=== PATIENT | female | born 1990 | race American Indian/Alaskan Native ===

== ENCOUNTER 2018-03-22 13:50 | Emergency (ER) | payer MEDICAID, OTHER ==
[2018-03-22 14:13] VITALS: BP 150/107
[2018-03-22] MEDS ORDERED: ZOFRAN ODT PO ONE (14:23)
[2018-03-22] MEDS ORDERED: NACL 0.9% 1000 ML 1,000 ML IV ONE (14:24)
[2018-03-22] MEDS ORDERED: PEPCID IV ONE (14:25)
[2018-03-22] MEDS ORDERED: ZOFRAN IV ONE (14:25)
--- NOTE | 2018-03-22 14:30 | Emergency Department Report ---
ED Abdominal Pain HPI - General Chief Complaint: Abdominal Pain Stated Complaint: VOMITING/GAS/CHILLS Time Seen by Provider: 03/22/18 14:16 Source: patient Mode of arrival: Ambulatory Limitations: No Limitations - History of Present Illness Initial Comments: Patient is a 27-year-old female who presents to ED complaining of generalized abdominal pain times one day. Patient states she had a palpable vomiting episodes yesterday. Patient states she is also experience left-sided flank pain all day yesterday. Patient noted that for the past 2 weeks she has been on fast with her mormonism which allows her to eat 1 meal a day. She denies vaginal bleeding, vaginal discharge, dysuria, MD Complaint: abdominal pain, flank pain - Related Data Previous Rx's Medication Instructions Recorded Last Taken Type Azithromycin [Zithromax Z-LYNNE] 250 mg PO DAILY #7 tab 01/19/13 Unknown Rx Cephalexin [Keflex] 500 mg PO BID #20 capsule 01/19/13 Unknown Rx oxyCODONE /ACETAMINOPHEN [Percocet 1 tab PO Q6HR PRN #30 tablet 01/23/13 Unknown Rx 5/325 mg] Cephalexin [Keflex] 750 mg PO Q6H #28 capsule 02/11/13 Unknown Rx Hydromorphone HCl [Dilaudid] 4 mg PO Q6HR PRN #30 tablet 02/11/13 Unknown Rx Nitrofurantoin [place]/M-Cryst 100 mg PO QDAY #30 capsule 02/11/13 Unknown Rx [Macrobid] Ondansetron [Zofran] 4 mg PO Q8HR PRN #20 tablet 02/11/13 Unknown Rx Docusate Sodium [Colace] 100 mg PO BID PRN #60 capsule 03/23/13 Unknown Rx Ferrous Sulfate [Feosol 325 MG tab] 325 mg PO BID #60 tablet 03/23/13 Unknown Rx oxyCODONE /ACETAMINOPHEN [Percocet 1 tab PO Q4HR PRN #45 tablet 03/23/13 Unknown Rx 5/325 mg] Ibuprofen [Motrin 800 MG tab] 800 mg PO TID PRN #40 tablet 03/22/18 Unknown Rx Nitrofurantoin Monohyd/M-Cryst 100 mg PO BID #10 capsule 03/22/18 Unknown Rx [Macrobid 100 mg Capsule] Allergies Allergy/AdvReac Type Severity Reaction Status Date / Time Penicillins Allergy Unknown Verified 01/17/13 00:06 ED Review of Systems ROS: Stated complaint: VOMITING/GAS/CHILLS Other details as noted in HPI Comment: All other systems reviewed and negative ED Past Medical Hx - Past Medical History Previous Medical History?: Yes Hx Hypertension: Yes (2004 ) Hx Heart Attack/AMI: No Hx Congestive Heart Failure: No Hx Diabetes: No Hx Deep Vein Thrombosis: No Hx Liver Disease: No Hx Renal Disease: No Hx Sickle Cell Disease: No Hx Seizures: No Hx Asthma: No Hx COPD: No Hx HIV: No - Surgical History Past Surgical History?: Yes Hx Pacemaker: No Hx Internal Defibrillator: No Additional Surgical History: x3. left breast mass drained - Social History Smoking Status: Never Smoker Substance Use Type: None - Medications Home Medications: Home Medications Medication Instructions Recorded Confirmed Last Taken Type Azithromycin [Zithromax Z-LYNNE] 250 mg PO DAILY #7 tab 01/19/13 03/22/13 Unknown Rx Cephalexin [Keflex] 500 mg PO BID #20 capsule 01/19/13 03/22/13 Unknown Rx oxyCODONE /ACETAMINOPHEN [Percocet 1 tab PO Q6HR PRN #30 tablet 01/23/13 03/22/13 Unknown Rx 5/325 mg] Cephalexin [Keflex] 750 mg PO Q6H #28 capsule 02/11/13 03/22/13 Unknown Rx Hydromorphone HCl [Dilaudid] 4 mg PO Q6HR PRN #30 tablet 02/11/13 03/22/13 Unknown Rx Nitrofurantoin [place]/M-Cryst 100 mg PO QDAY #30 capsule 02/11/13 03/22/13 Unknown Rx [Macrobid] Ondansetron [Zofran] 4 mg PO Q8HR PRN #20 tablet 02/11/13 03/22/13 Unknown Rx Docusate Sodium [Colace] 100 mg PO BID PRN #60 capsule 03/23/13 Unknown Rx Ferrous Sulfate [Feosol 325 MG tab] 325 mg PO BID #60 tablet 03/23/13 Unknown Rx oxyCODONE /ACETAMINOPHEN [Percocet 1 tab PO Q4HR PRN #45 tablet 03/23/13 Unknown Rx 5/325 mg] Ibuprofen [Motrin 800 MG tab] 800 mg PO TID PRN #40 tablet 03/22/18 Unknown Rx Nitrofurantoin Monohyd/M-Cryst 100 mg PO BID #10 capsule 03/22/18 Unknown Rx [Macrobid 100 mg Capsule] ED Physical Exam - General Limitations: No Limitations General appearance: alert, in no apparent distress - Head Head exam: Present: atraumatic, normocephalic - Eye Eye exam: Present: normal appearance - ENT ENT exam: Present: mucous membranes moist - Neck Neck exam: Present: normal inspection - Respiratory Respiratory exam: Present: normal lung sounds bilaterally. Absent: respiratory distress - Cardiovascular Cardiovascular Exam: Present: regular rate, normal rhythm. Absent: systolic murmur, diastolic murmur, rubs, gallop - GI/Abdominal GI/Abdominal exam: Present: soft, tenderness, normal bowel sounds. Absent: distended, guarding, rebound, rigid - Extremities Exam Extremities exam: Present: normal inspection - Back Exam Back exam: Present: normal inspection, full ROM, CVA tenderness (L). Absent: tenderness, CVA tenderness (R) - Neurological Exam Neurological exam: Present: alert, oriented X3 - Psychiatric Psychiatric exam: Present: normal affect, normal mood - Skin Skin exam: Present: warm, dry, intact, normal color. Absent: rash ED Course Vital Signs 03/22/18 14:09 Temperature 99.3 F Pulse Rate 79 Respiratory 16 Rate Blood Pressure 150/107 O2 Sat by Pulse 99 Oximetry ED Medical Decision Making - Lab Data Result diagrams: 03/22/18 14:30 03/22/18 14:30 Laboratory Last Values WBC 11.0 K/mm3 (4.5-11.0) 03/22/18 14:30 RBC 4.10 M/mm3 (3.65-5.03) 03/22/18 14:30 Hgb 10.7 gm/dl (10.1-14.3) 03/22/18 14:30 Hct 33.6 % (30.3-42.9) 03/22/18 14:30 MCV 82 fl (79-97) 03/22/18 14:30 MCH 26 pg (28-32) L 03/22/18 14:30 MCHC 32 % (30-34) 03/22/18 14:30 RDW 16.0 % (13.2-15.2) H 03/22/18 14:30 Plt Count 529 K/mm3 (140-440) H 03/22/18 14:30 Sodium 139 mmol/L (137-145) 03/22/18 14:30 Potassium 4.1 mmol/L (3.6-5.0) 03/22/18 14:30 Chloride 99.5 mmol/L (98-107) 03/22/18 14:30 Carbon Dioxide 23 mmol/L (22-30) 03/22/18 14:30 Anion Gap 21 mmol/L 03/22/18 14:30 BUN 7 mg/dL (7-17) 03/22/18 14:30 Creatinine 0.8 mg/dL (0.7-1.2) 03/22/18 14:30 Estimated GFR > 60 ml/min 03/22/18 14:30 BUN/Creatinine Ratio 9 % 03/22/18 14:30 Glucose 99 mg/dL (65-100) 03/22/18 14:30 Calcium 10.0 mg/dL (8.4-10.2) 03/22/18 14:30 Total Bilirubin 0.40 mg/dL (0.1-1.2) 03/22/18 14:30 AST 21 units/L (5-40) 03/22/18 14:30 ALT 21 units/L (7-56) 03/22/18 14:30 Alkaline Phosphatase 59 units/L (35-129) 03/22/18 14:30 Total Protein 8.1 g/dL (6.3-8.2) 03/22/18 14:30 Albumin 4.5 g/dL (3.9-5) 03/22/18 14:30 Albumin/Globulin Ratio 1.3 % 03/22/18 14:30 Amylase 135 units/L (27-131) H 03/22/18 14:30 Lipase 38 units/L (13-60) 03/22/18 14:30 Urine Color Yellow (Yellow) 03/22/18 14:24 Urine Turbidity Cloudy (Clear) 03/22/18 14:24 Urine pH 8.0 (5.0-7.0) H 03/22/18 14:24 Ur Specific [place] 1.024 (1.003-1.030) 03/22/18 14:24 Urine Protein 100 mg/dl mg/dL (Negative) 03/22/18 14:24 Urine Glucose (UA) Neg mg/dL (Negative) 03/22/18 14:24 Urine Ketones 80 mg/dL (Negative) 03/22/18 14:24 Urine Blood Mod (Negative) 03/22/18 14:24 Urine Nitrite Neg (Negative) 03/22/18 14:24 Urine Bilirubin Neg (Negative) 03/22/18 14:24 Urine Urobilinogen < 2.0 mg/dL (<2.0) 03/22/18 14:24 Ur Leukocyte Esterase Lg (Negative) 03/22/18 14:24 Urine WBC (Auto) > 182.0 /HPF (0.0-6.0) H 03/22/18 14:24 Urine RBC (Auto) 183.0 /HPF (0.0-6.0) 03/22/18 14:24 U Epithel Cells (Auto) 27.0 /HPF (0-13.0) H 03/22/18 14:24 Urine Bacteria (Auto) 2+ /HPF (Negative) 03/22/18 14:24 Urine Mucus 3+ /HPF 03/22/18 14:24 Urine HCG, Qual Negative (Negative) 03/22/18 14:24 - Medical Decision Making 27-year-old female presents with acute cystitis/pyelo CBC, CMP, urinalysis and tests ordered. Labs are within normal limits, amylase elevated urinalysis positive for leukocyte esterase, wbc's. Discussed findings with the patient. Patient was seen 1 L normal saline, Rocephin, Zofran in the ED. No active vomiting during ED stay. I discussed the patient important to increase hydration. Patient reports feeling much better after fluids and pain medicated. Vital signs are normal she is in no acute distress. Discussed follow-up with primary care physician. Critical care attestation.: If time is entered above; I have spent that time in minutes in the direct care of this critically ill patient, excluding procedure time. ED Disposition Clinical Impression: Cystitis, Flank pain Disposition: - TO HOME OR SELFCARE Is pt being admited?: No Does the pt Need Aspirin: No Condition: Stable Instructions: Urinary Tract Infection in Women (ED), Acute Pyelonephritis (ED), Abdominal Pain (ED), Flank Pain (ED) Additional Instructions: Make sure to follow up with the primary care physician as discussed. Take all your medications as you've been prescribed. If you have any worsening symptoms or develop new symptoms please return to ED immediately. Prescriptions: Ibuprofen [Motrin 800 MG tab] 800 mg PO TID PRN #40 tablet PRN Reason: Pain Nitrofurantoin Monohyd/M-Cryst [Macrobid 100 mg Capsule] 100 mg PO BID #10 capsule Referrals: MARINE ORONA MD [Referring] - 3-5 Days [facility] [Outside] - 3-5 Days [facility] [Outside] - 3-5 Days Forms: Accompanied Note, Work/School Release Form(ED) Time of Disposition: 15:35
[2018-03-22 14:43] LABS: Hematocrit 33.6 % (30.3-42.9); Hemoglobin 10.7 gm/dl (10.1-14.3); Mean Corpuscular HGB Conc 32 % (30-34); Mean Corpuscular Volume 82 fl (79-97); Platelet Count 529 K/mm3 (140-440)
[2018-03-22 14:46] LABS: Bacteria,Urine 2+ /HPF (Negative); Bilirubin,Urine NEG (Negative); Blood,Urine MOD (Negative); Color,Urine Yellow (Yellow); Mucus,Urine 3+ /HPF; Urobilinogen,Urine < 2.0 mg/dL (<2.0)
[2018-03-22 14:47] LABS: WBC,Urine > 182.0 /HPF (0.0-6.0)
[2018-03-22 14:49] LABS: HCG Qualitative,Urine Negative (Negative)
[2018-03-22 15:03] LABS: Alanine Aminotransferase 21 units/L (7-56); Albumin 4.5 g/dL (3.9-5); BUN/Creatinine Ratio 9; Blood Urea Nitrogen 7 mg/dL (7-17); Hemolysis Index 19
[2018-03-22] MEDS ORDERED: ROCEPHIN IM ONE (15:09)
[2018-03-22] MEDS ORDERED: ALUM-MAG HYDROX-SIMETH 200-200-20MG/5ML PO ONE (16:17)
[2018-03-22] MEDS ORDERED: ROCEPHIN 250 MG in NACL 0.9% 50 ML IV ONE (16:30)
== END 2018-03-22 16:33 | disposition home or self-care (01) ==
LOC: ED 13:50
DX: N30.90 Cystitis, unspecified without hematuria (principal); I10 Essential (primary) hypertension; Z88.0 Allergy status to penicillin
CPT/HCPCS: 36415; 80053; 81001; 81025; 82150; 83690; 85027; 96361; 96365; 96375; 99283; J0696; J2405; J7030

== ENCOUNTER 2018-04-16 09:51 | Emergency (ER) | payer OTHER ==
[2018-04-16 10:34] VITALS: BP 160/99
[2018-04-16] MEDS ORDERED: ZOFRAN ODT PO ONE (11:47)
[2018-04-16 12:26] LABS: Bacteria,Urine 1+ /HPF (Negative); Bilirubin,Urine NEG (Negative); Blood,Urine NEG (Negative); Color,Urine Amber (Yellow); HCG Qualitative,Urine Negative (Negative); Mucus,Urine 2+ /HPF; Urobilinogen,Urine < 2.0 mg/dL (<2.0)
[2018-04-16] MEDS ORDERED: NACL 0.9% 1000 ML 1,000 ML IV ONE ×2 (12:27→13:16)
[2018-04-16] MEDS ORDERED: MORPHINE IV ONE ×2 (12:27→13:53)
[2018-04-16] MEDS ORDERED: REGLAN IV ONE (12:27)
[2018-04-16] MEDS ORDERED: PEPCID IV ONE (12:27)
[2018-04-16] MEDS ORDERED: BENADRYL IV ONE (12:27)
[2018-04-16 12:48] LABS: Hematocrit 31.9 % (30.3-42.9); Hemoglobin 10.5 gm/dl (10.1-14.3); Mean Corpuscular HGB Conc 33 % (30-34); Mean Corpuscular Volume 81 fl (79-97); Platelet Count 443 K/mm3 (140-440); Red Blood Count 3.95 M/mm3 (3.65-5.03); Red Cell Distribution Width 16.9 % (13.2-15.2)
[2018-04-16 13:03] LABS: Alanine Aminotransferase 20 units/L (7-56); Albumin 4.2 g/dL (3.9-5); BUN/Creatinine Ratio 16; Blood Urea Nitrogen 11 mg/dL (7-17); Calcium 9.5 mg/dL (8.4-10.2); Hemolysis Index 44
--- NOTE | 2018-04-16 13:18 | Emergency Department Report ---
ED N/V/D HPI - General Chief complaint: Abdominal Pain Stated complaint: N/V Time Seen by Provider: 04/16/18 12:22 Source: patient Mode of arrival: Ambulatory Limitations: No Limitations - History of Present Illness Initial comments: 28 yo female with a past medical history of 3 visits to the hospital with complaints of nausea, vomiting, diarrhea with by mouth intolerance since last night. She states she has vomited over 10 times since 2 AM. She denies fever, nausea, vomiting, hematochezia, hematemesis, sick contacts, recent travel, or antibiotic use. She states she was here last month with similar symptoms. He was medical record was reviewed. At that time patient was diagnosed with gastritis and UTI no imaging studies were obtained. - Related Data Previous Rx's Medication Instructions Recorded Last Taken Type Azithromycin [Zithromax Z-LYNNE] 250 mg PO DAILY #7 tab 01/19/13 Unknown Rx Cephalexin [Keflex] 500 mg PO BID #20 capsule 01/19/13 Unknown Rx oxyCODONE /ACETAMINOPHEN [Percocet 1 tab PO Q6HR PRN #30 tablet 01/23/13 Unknown Rx 5/325 mg] Cephalexin [Keflex] 750 mg PO Q6H #28 capsule 02/11/13 Unknown Rx Hydromorphone HCl [Dilaudid] 4 mg PO Q6HR PRN #30 tablet 02/11/13 Unknown Rx Nitrofurantoin [place]/M-Cryst 100 mg PO QDAY #30 capsule 02/11/13 Unknown Rx [Macrobid] Ondansetron [Zofran] 4 mg PO Q8HR PRN #20 tablet 02/11/13 Unknown Rx Docusate Sodium [Colace] 100 mg PO BID PRN #60 capsule 03/23/13 Unknown Rx Ferrous Sulfate [Feosol 325 MG tab] 325 mg PO BID #60 tablet 03/23/13 Unknown Rx oxyCODONE /ACETAMINOPHEN [Percocet 1 tab PO Q4HR PRN #45 tablet 03/23/13 Unknown Rx 5/325 mg] Ibuprofen [Motrin 800 MG tab] 800 mg PO TID PRN #40 tablet 03/22/18 Unknown Rx Nitrofurantoin Monohyd/M-Cryst 100 mg PO BID #10 capsule 03/22/18 Unknown Rx [Macrobid 100 mg Capsule] HYDROcodone/APAP 5-325 [[place] 1 each PO Q6HR PRN #20 tablet 04/16/18 Unknown Rx 5/325] Omeprazole Magnesium [PriLOSEC Otc] 20 mg PO QDAY #30 tablet. 04/16/18 Unknown Rx Ondansetron [Zofran Odt] 4 mg PO Q8HR PRN #20 tab.rapdis 04/16/18 Unknown Rx Promethazine [Phenergan TAB] 25 mg PO Q6HR PRN #20 tab 04/16/18 Unknown Rx Allergies Allergy/AdvReac Type Severity Reaction Status Date / Time Penicillins Allergy Unknown Verified 01/17/13 00:06 ED Review of Systems ROS: Stated complaint: N/V Other details as noted in HPI Comment: All other systems reviewed and negative ED Past Medical Hx - Past Medical History Hx Hypertension: Yes (2004 ) Hx Heart Attack/AMI: No Hx Congestive Heart Failure: No Hx Diabetes: No Hx Deep Vein Thrombosis: No Hx Liver Disease: No Hx Renal Disease: No Hx Sickle Cell Disease: No Hx Seizures: No Hx Asthma: No Hx COPD: No Hx HIV: No - Surgical History Hx Pacemaker: No Hx Internal Defibrillator: No Additional Surgical History: x3. left breast mass drained - Social History Smoking Status: Current Some Day Smoker Substance Use Type: Marijuana - Medications Home Medications: Home Medications Medication Instructions Recorded Confirmed Last Taken Type Azithromycin [Zithromax Z-LYNNE] 250 mg PO DAILY #7 tab 01/19/13 03/22/13 Unknown Rx Cephalexin [Keflex] 500 mg PO BID #20 capsule 01/19/13 03/22/13 Unknown Rx oxyCODONE /ACETAMINOPHEN [Percocet 1 tab PO Q6HR PRN #30 tablet 01/23/13 03/22/13 Unknown Rx 5/325 mg] Cephalexin [Keflex] 750 mg PO Q6H #28 capsule 02/11/13 03/22/13 Unknown Rx Hydromorphone HCl [Dilaudid] 4 mg PO Q6HR PRN #30 tablet 02/11/13 03/22/13 Unknown Rx Nitrofurantoin [place]/M-Cryst 100 mg PO QDAY #30 capsule 02/11/13 03/22/13 Unknown Rx [Macrobid] Ondansetron [Zofran] 4 mg PO Q8HR PRN #20 tablet 02/11/13 03/22/13 Unknown Rx Docusate Sodium [Colace] 100 mg PO BID PRN #60 capsule 03/23/13 Unknown Rx Ferrous Sulfate [Feosol 325 MG tab] 325 mg PO BID #60 tablet 03/23/13 Unknown Rx oxyCODONE /ACETAMINOPHEN [Percocet 1 tab PO Q4HR PRN #45 tablet 03/23/13 Unknown Rx 5/325 mg] Ibuprofen [Motrin 800 MG tab] 800 mg PO TID PRN #40 tablet 03/22/18 Unknown Rx Nitrofurantoin Monohyd/M-Cryst 100 mg PO BID #10 capsule 03/22/18 Unknown Rx [Macrobid 100 mg Capsule] HYDROcodone/APAP 5-325 [[place] 1 each PO Q6HR PRN #20 tablet 04/16/18 Unknown Rx 5/325] Omeprazole Magnesium [PriLOSEC Otc] 20 mg PO QDAY #30 tablet. 04/16/18 Unknown Rx Ondansetron [Zofran Odt] 4 mg PO Q8HR PRN #20 tab.rapdis 04/16/18 Unknown Rx Promethazine [Phenergan TAB] 25 mg PO Q6HR PRN #20 tab 04/16/18 Unknown Rx ED Physical Exam - General Limitations: No Limitations - Other Other exam information: General: Distress secondary to pain Head exam: Atraumatic, normocephalic Eyes exam: Normal appearance, nonicteric sclera ENT: Moist mucous membrane, Neck exam: Normal inspection, full range of motion, no meningismus nontender Respiratory exam: Clear to auscultation bilateral, no wheezes, rales, crackles Cardiovascular: Normal rate and rhythm, normal heart sounds Abdomen: Soft, nondistended, generalized tenderness greatest in the epigastric area, with normal bowel sounds, no rebound, or guarding Extremity: Full range of motion normal inspection no deformity Back: Normal Inspection, full range of motion, no tenderness Neurologic: Alert, oriented x3, cranial nerves intact, no motor or sensory deficit Psychiatric: normal affect, normal mood Skin: Warm, dry, intact ED Course Vital Signs 04/16/18 10:29 Temperature 98.4 F Pulse Rate 79 Respiratory 18 Rate Blood Pressure 160/99 Blood Pressure 160/99 [Right] O2 Sat by Pulse 100 Oximetry ED Medical Decision Making - Lab Data Result diagrams: 04/16/18 12:31 02/16/19 12:31 Lab Results 04/16/18 04/16/18 04/16/18 Range/Units 11:53 12:31 12:31 WBC 9.5 (4.5-11.0) K/mm3 RBC 3.95 (3.65-5.03) M/mm3 Hgb 10.5 (10.1-14.3) gm/dl Hct 31.9 (30.3-42.9) % MCV 81 (79-97) fl MCH 27 L (28-32) pg MCHC 33 (30-34) % RDW 16.9 H (13.2-15.2) % Plt Count 443 H (140-440) K/mm3 Add Manual Diff Complete Total Counted 100 Seg Neutrophils % Stencil Machine Operator Seg Neuts % (Manual) 93.0 H (40.0-70.0) % Band Neutrophils % 0 % Lymphocytes % (Manual) 4.0 L (13.4-35.0) % Reactive Lymphs % (Man) 0 % Monocytes % (Manual) 2.0 (0.0-7.3) % Eosinophils % (Manual) 0 (0.0-4.3) % Basophils % (Manual) 1.0 (0.0-1.8) % Metamyelocytes % 0 % Myelocytes % 0 % Promyelocytes % 0 % Blast Cells % 0 % Nucleated RBC % Not Reportable Seg Neutrophils # Man 8.8 H (1.8-7.7) K/mm3 Band Neutrophils # 0.0 K/mm3 Lymphocytes # (Manual) 0.4 L (1.2-5.4) K/mm3 Abs React Lymphs (Man) 0.0 K/mm3 Monocytes # (Manual) 0.2 (0.0-0.8) K/mm3 Eosinophils # (Manual) 0.0 (0.0-0.4) K/mm3 Basophils # (Manual) 0.1 (0.0-0.1) K/mm3 Metamyelocytes # 0.0 K/mm3 Myelocytes # 0.0 K/mm3 Promyelocytes # 0.0 K/mm3 Blast Cells # 0.0 K/mm3 WBC Morphology Not Reportable Hypersegmented Neuts Not Reportable Hyposegmented Neuts Not Reportable Hypogranular Neuts Not Reportable Smudge Cells Not Reportable Toxic Granulation Not Reportable Toxic Vacuolation Not Reportable Dohle Bodies Not Reportable Pelger-Huet Anomaly Not Reportable Bhavana Rods Not Reportable Platelet Estimate Consistent w auto Clumped Platelets Not Reportable Plt Clumps, EDTA Not Reportable Large Platelets Not Reportable Giant Platelets Not Reportable Platelet Satelliting Not Reportable Plt Morphology Comment Not Reportable RBC Morphology Not Reportable Dimorphic RBCs Not Reportable Polychromasia Not Reportable Hypochromasia Not Reportable Poikilocytosis Not Reportable Anisocytosis 1+ Microcytosis Not Reportable Macrocytosis Not Reportable Spherocytes Not Reportable Pappenheimer Bodies Not Reportable Sickle Cells Not Reportable Target Cells Not Reportable Tear Drop Cells Not Reportable Ovalocytes Not Reportable Helmet Cells Not Reportable [place] [employer]b Bodies Not Reportable [place] Rings Not Reportable [place] Cells Not Reportable Bite Cells Not Reportable Crenated Cell Not Reportable Elliptocytes Not Reportable Acanthocytes (Spur) Not Reportable Rouleaux Not Reportable Hemoglobin C Crystals Not Reportable Schistocytes Not Reportable Malaria parasites Not Reportable Srinivas Bodies Not Reportable Hem Pathologist Commnt No Sodium 137 (137-145) mmol/L Potassium 4.0 (3.6-5.0) mmol/L Chloride 102.5 (98-107) mmol/L Carbon Dioxide 18 L (22-30) mmol/L Anion Gap 21 mmol/L BUN 11 (7-17) mg/dL Creatinine 0.7 (0.7-1.2) mg/dL Estimated GFR > 60 ml/min BUN/Creatinine Ratio 16 % Glucose 130 H (65-100) mg/dL Calcium 9.5 (8.4-10.2) mg/dL Total Bilirubin 0.30 (0.1-1.2) mg/dL AST 25 (5-40) units/L ALT 20 (7-56) units/L Alkaline Phosphatase 59 (35-129) units/L Total Protein 7.5 (6.3-8.2) g/dL Albumin 4.2 (3.9-5) g/dL Albumin/Globulin Ratio 1.3 % Lipase 31 (13-60) units/L Urine Color [place] (Yellow) Urine Turbidity Clear (Clear) Urine pH 8.0 H (5.0-7.0) Ur Specific [place] 1.025 (1.003-1.030) Urine Protein 100 mg/dl (Negative) mg/dL Urine Glucose (UA) Neg (Negative) mg/dL Urine Ketones Tr (Negative) mg/dL Urine Blood Neg (Negative) Urine Nitrite Neg (Negative) Urine Bilirubin Neg (Negative) Urine Urobilinogen < 2.0 (<2.0) mg/dL Ur Leukocyte Esterase Neg (Negative) Urine WBC (Auto) 1.0 (0.0-6.0) /HPF Urine RBC (Auto) 3.0 (0.0-6.0) /HPF U Epithel Cells (Auto) 2.0 (0-13.0) /HPF Urine Bacteria (Auto) 1+ (Negative) /HPF Urine Mucus 2+ /HPF Urine HCG, Qual Negative (Negative) - Radiology Data Radiology results: report reviewed CT abdomen and pelvis IV contrast: Small cystic mass in the right adnexa is likely a dominant follicle. Fluid and endometrial and endocervical canal no significant finding abdomen pelvis - Medical Decision Making Patient feeling better with ED treatment and tolerating by mouth. CT abdomen and pelvis without acute abnormality. Will be discharged with symptomatic treatment and follow-up - Differential Diagnosis gastritis, gastroenteritis, UTI, appendicitis, diverticulitis, cholecystiti Critical Care Time: No Critical care attestation.: If time is entered above; I have spent that time in minutes in the direct care of this critically ill patient, excluding procedure time. ED Disposition Clinical Impression: Gastroenteritis Disposition: DC-01 TO HOME OR SELFCARE Is pt being admited?: No Does the pt Need Aspirin: No Condition: Stable Instructions: Gastroenteritis (ED) Additional Instructions: Take the medication as prescribed. Follow up with your doctor or the clinic/doctor provided. Return if symptoms worsen as indicated by your discharge instructions Prescriptions: HYDROcodone/APAP 5-325 [[place] 5/325] 1 each PO Q6HR PRN #20 tablet PRN Reason: Pain Omeprazole Magnesium [PriLOSEC Otc] 20 mg PO QDAY #30 tablet. Ondansetron [Zofran Odt] 4 mg PO Q8HR PRN #20 tab.rapdis PRN Reason: Nausea And Vomiting Promethazine [Phenergan TAB] 25 mg PO Q6HR PRN #20 tab PRN Reason: Nausea Referrals: DOC TOVAR MD [Staff Physician] - 3-5 Days (GI specialist) CARBUCCIA,PEACE [Primary Care Provider] - 3-5 Days (Primary care doctor) [facility] [Provider Group] - 3-5 Days (Primary care clinic) Time of Disposition: 16:08
[2018-04-16] MEDS ORDERED: ZOFRAN IV ONE (13:54)
[2018-04-16 14:42] LABS: Anisocytosis 1+; Eosinophils % (Manual) 0 % (0.0-4.3); Total Cells Counted 100
[2018-04-16 14:43] LABS: Platelet Estimate Consistent w Auto
--- NOTE | 2018-04-16 14:55 | Cat Scan Report ---
FINAL REPORT EXAM: CT ABDOMEN PELVIS W CON HISTORY: abd pain, n,v,d TECHNIQUE: CT abdomen and pelvis performed. Images extend from diaphragm to pubic symphysis. 100 c c Omnipaque 300 IV was administered. No oral contrast was administered. Axial images and coronal and sagittal reformatted images were obtained. PRIORS: None. FINDINGS: The visualized liver, spleen, pancreas, adrenal glands and kidneys demonstrate no significant abnorma lities. There is no abdominal aortic aneurysm. There is no evidence of intestinal obstruction. The appendix is normal. There are no abnormal fluid collections seen. There is no free intraperitoneal air. There is a 2 cm cystic mass in the right adnexa. There is minimal free fluid in the cul-de-sac. There is fluid in the endometrial and endocervical canal. IMPRESSION: Small cystic mass in the right adnexa is likely a dominant follicle. There is fluid in the endometrial and endocervical canal. No significant finding otherwise seen in abdomen or pelvis.
== END 2018-04-16 16:25 | disposition home or self-care (01) ==
LOC: ED 09:51
DX: K52.9 Noninfective gastroenteritis and colitis, unspecified (principal); I10 Essential (primary) hypertension; F17.200 Nicotine dependence, unspecified, uncomplicated; F12.10 Cannabis abuse, uncomplicated; Z79.899 Other long term (current) drug therapy; Z88.0 Allergy status to penicillin
CPT/HCPCS: 36415; 74177; 80053; 81001; 81025; 83690; 85007; 85025; 96361; 96374; 96375; 96376; 99284; J1200; J2270; J2405; J2765; J7030; Q9967; Q0162

== ENCOUNTER 2018-04-18 04:42 | Inpatient (IN) | payer OTHER ==
[2018-04-18 05:41] LABS: Basophils # (Auto) 0.1 K/mm3 (0.0-0.1); Basophils % (Auto) 0.9 % (0.0-1.8); Eosinophils # (Auto) 0.1 K/mm3 (0.0-0.4); Eosinophils % (Auto) 0.9 % (0.0-4.3); Hematocrit 34.8 % (30.3-42.9); Hemoglobin 11.1 gm/dl (10.1-14.3); Lymphocytes # (Auto) 2.5 K/mm3 (1.2-5.4); Lymphocytes % (Auto) 19.1 % (13.4-35.0); Mean Corpuscular HGB Conc 32 % (30-34); Mean Corpuscular Volume 82 fl (79-97); Monocytes # (Auto) 0.8 K/mm3 (0.0-0.8); Monocytes % (Auto) 6.3 % (0.0-7.3); Platelet Count 553 K/mm3 (140-440); Red Blood Count 4.22 M/mm3 (3.65-5.03); Red Cell Distribution Width 17.4 % (13.2-15.2)
[2018-04-18 05:58] LABS: BUN/Creatinine Ratio 11; Blood Urea Nitrogen 10 mg/dL (7-17); Calcium 9.3 mg/dL (8.4-10.2); Hemolysis Index 4
[2018-04-18] MEDS ORDERED: ZOFRAN IV ONE (06:25)
[2018-04-18] MEDS ORDERED: ZOFRAN ONE (06:26)
[2018-04-18] MEDS ORDERED: TORADOL IV ONE (07:00)
[2018-04-18] MEDS ORDERED: PEPCID IV ONE (07:00)
--- NOTE | 2018-04-18 07:07 | Emergency Department Report ---
HPI - General Chief Complaint: Abdominal Pain Time Seen by Provider: 04/18/18 06:53 - HPI HPI: Room 26 The patient is a 28-year-old female presented with a chief complaint of abdominal pain. Patient states she's had diffuse abdominal pain for the past 3 days. Patient describes pain as pressure and tightening in nature. Patient admits to nausea vomiting and diarrhea. Denies history of fever. Patient denies dysuria or vaginal discharge. Location: Abdomen Duration: [See above] Quality: Pressure/tightening Severity: 12/08 Modifying factors: [see above] Context: [see above] Mode of transportation: The patient drove herself to the emergency department and there are no visitors present ED Past Medical Hx - Past Medical History Hx Hypertension: Yes (2004 ) - Surgical History Additional Surgical History: x3. left breast mass drained - Family History Family history: no significant - Social History Smoking Status: Never Smoker Substance Use Type: Marijuana - Medications Home Medications: Home Medications Medication Instructions Recorded Confirmed Last Taken Type Azithromycin [Zithromax Z-LYNNE] 250 mg PO DAILY #7 tab 01/19/13 03/22/13 Unknown Rx Cephalexin [Keflex] 500 mg PO BID #20 capsule 01/19/13 03/22/13 Unknown Rx oxyCODONE /ACETAMINOPHEN [Percocet 1 tab PO Q6HR PRN #30 tablet 01/23/13 03/22/13 Unknown Rx 5/325 mg] Cephalexin [Keflex] 750 mg PO Q6H #28 capsule 02/11/13 03/22/13 Unknown Rx Hydromorphone HCl [Dilaudid] 4 mg PO Q6HR PRN #30 tablet 02/11/13 03/22/13 Unknown Rx Nitrofurantoin [place]/M-Cryst 100 mg PO QDAY #30 capsule 02/11/13 03/22/13 Unknown Rx [Macrobid] Ondansetron [Zofran] 4 mg PO Q8HR PRN #20 tablet 02/11/13 03/22/13 Unknown Rx Docusate Sodium [Colace] 100 mg PO BID PRN #60 capsule 03/23/13 Unknown Rx Ferrous Sulfate [Feosol 325 MG tab] 325 mg PO BID #60 tablet 03/23/13 Unknown Rx oxyCODONE /ACETAMINOPHEN [Percocet 1 tab PO Q4HR PRN #45 tablet 03/23/13 Unknown Rx 5/325 mg] Ibuprofen [Motrin 800 MG tab] 800 mg PO TID PRN #40 tablet 03/22/18 Unknown Rx Nitrofurantoin Monohyd/M-Cryst 100 mg PO BID #10 capsule 03/22/18 Unknown Rx [Macrobid 100 mg Capsule] HYDROcodone/APAP 5-325 [[place] 1 each PO Q6HR PRN #20 tablet 04/16/18 Unknown Rx 5/325] Omeprazole Magnesium [PriLOSEC Otc] 20 mg PO QDAY #30 tablet. 04/16/18 Unknown Rx Ondansetron [Zofran Odt] 4 mg PO Q8HR PRN #20 tab.rapdis 04/16/18 Unknown Rx Promethazine [Phenergan TAB] 25 mg PO Q6HR PRN #20 tab 04/16/18 Unknown Rx ED Review of Systems ROS: Stated complaint: N/V Other details as noted in HPI Constitutional: denies: fever Eyes: denies: eye pain ENT: denies: throat pain Respiratory: no symptoms reported Cardiovascular: denies: chest pain Endocrine: no symptoms reported Gastrointestinal: abdominal pain, nausea, vomiting, diarrhea Genitourinary: denies: dysuria, discharge Musculoskeletal: denies: back pain Neurological: denies: headache Physical Exam - Physical Exam Vital Signs: Vital Signs 04/18/18 04/18/18 04/18/18 04:53 05:00 05:36 Temperature 98.2 F 98.2 F Pulse Rate 90 105 H 71 Respiratory 18 20 14 Rate Blood Pressure 165/105 165/105 O2 Sat by Pulse 100 100 Oximetry 04/18/18 04/18/18 04/18/18 05:45 06:00 06:15 Temperature Pulse Rate 73 96 H 64 Respiratory 11 L 15 15 Rate Blood Pressure O2 Sat by Pulse 98 100 100 Oximetry 04/18/18 04/18/18 04/18/18 06:31 06:45 06:57 Temperature Pulse Rate 67 80 Respiratory 13 10 L 16 Rate Blood Pressure O2 Sat by Pulse 99 100 100 Oximetry Physical Exam: GENERAL: The patient is well-developed well-nourished female lying on stretcher appearing to be in moderate discomfort. [] HEENT: Normocephalic. Atraumatic. Extraocular motions are intact. Patient has moist mucous membranes. NECK: Supple. Trachea midline CHEST/LUNGS: Clear to auscultation. There is no respiratory distress noted. HEART/CARDIOVASCULAR: Regular. There is no tachycardia. There is no gallop rub or murmur. ABDOMEN: Abdomen is soft, with diffuse tenderness to palpation. There is no rebound or guarding. Patient has normal bowel sounds. There is no abdominal d istention. SKIN: There is no rash. There is no edema. There is no diaphoresis. NEURO: The patient is awake, alert, and oriented. The patient is cooperative. The patient has normal speech MUSCULOSKELETAL: There is no evidence of acute injury. ED Course Vital Signs 04/18/18 04/18/18 04/18/18 04:53 05:00 05:36 Temperature 98.2 F 98.2 F Pulse Rate 90 105 H 71 Respiratory 18 20 14 Rate Blood Pressure 165/105 165/105 O2 Sat by Pulse 100 100 Oximetry 04/18/18 04/18/18 04/18/18 05:45 06:00 06:15 Temperature Pulse Rate 73 96 H 64 Respiratory 11 L 15 15 Rate Blood Pressure O2 Sat by Pulse 98 100 100 Oximetry 04/18/18 04/18/18 04/18/18 06:31 06:45 06:57 Temperature Pulse Rate 67 80 Respiratory 13 10 L 16 Rate Blood Pressure O2 Sat by Pulse 99 100 100 Oximetry ED Medical Decision Making - Lab Data Result diagrams: 04/18/18 05:21 04/18/18 05:21 Laboratory Tests 04/18/18 04/18/18 04/18/18 05:21 05:21 05:21 WBC 13.1 H RBC 4.22 Hgb 11.1 Hct 34.8 MCV 82 MCH 26 L MCHC 32 RDW 17.4 H Plt Count 553 H Lymph % (Auto) 19.1 [place] % (Auto) 6.3 Eos % (Auto) 0.9 Baso % (Auto) 0.9 Lymph # 2.5 [place] # 0.8 Eos # 0.1 Baso # 0.1 Seg Neutrophils % 72.8 H Seg Neutrophils # 9.5 H Sodium 139 Potassium 3.8 Chloride 104.6 Carbon Dioxide 19 L Anion Gap 19 BUN 10 Creatinine 0.9 Estimated GFR > 60 BUN/Creatinine Ratio 11 Glucose 94 Calcium 9.3 Total Bilirubin Direct Bilirubin AST ALT Alkaline Phosphatase Total Protein Albumin Albumin/Globulin Ratio HCG, Qual Negative Urine Color Urine Turbidity Urine pH Ur Specific [place] Urine Protein Urine Glucose (UA) Urine Ketones Urine Blood Urine Nitrite Urine Bilirubin Urine Urobilinogen Ur Leukocyte Esterase Urine WBC (Auto) Urine RBC (Auto) U Epithel Cells (Auto) Urine Bacteria (Auto) Urine Mucus 04/18/18 04/18/18 05:21 07:42 WBC RBC Hgb Hct MCV MCH MCHC RDW Plt Count Lymph % (Auto) [place] % (Auto) Eos % (Auto) Baso % (Auto) Lymph # [place] # Eos # Baso # Seg Neutrophils % Seg Neutrophils # Sodium Potassium Chloride Carbon Dioxide Anion Gap BUN Creatinine Estimated GFR BUN/Creatinine Ratio Glucose Calcium Total Bilirubin 0.30 Direct Bilirubin < 0.2 AST 19 ALT 15 Alkaline Phosphatase 57 Total Protein 7.6 Albumin 4.2 Albumin/Globulin Ratio 1.2 HCG, Qual Urine Color Yellow Urine Turbidity Slightly-cloudy Urine pH 7.0 Ur Specific [place] 1.014 Urine Protein <15 mg/dl Urine Glucose (UA) Neg Urine Ketones 20 Urine Blood Neg Urine Nitrite Neg Urine Bilirubin Neg Urine Urobilinogen < 2.0 Ur Leukocyte Esterase Tr Urine WBC (Auto) 3.0 Urine RBC (Auto) 2.0 U Epithel Cells (Auto) 9.0 Urine Bacteria (Auto) 1+ Urine Mucus Few - Radiology Data Radiology results: report reviewed (pelvic ultrasound, CT abdomen and pelvis), image reviewed (pelvic ultrasound, CT abdomen and pelvis) [facility] [address] [place] [address] Ultrasound Report Signed Patient: ANNALISA STATON MR#: [id number] : 1990 Acct:[id number] Age/Sex: 28 / F ADM Date: 04/18/18 Loc: ED Attending Dr: Ordering Physician: HANNAH GARCIA MD Date of Service: 04/18/18 Procedure(s): US pelvis duplex doppler comp Accession Number(s): [id number] cc: HANNAH GARCIA MD FINAL REPORT EXAM: US PELVIS DUPLEX DOPPLER COMP HISTORY: abd pain, right adnexal mass seen on previous CT COMPARISONS: 04/16/2018 FINDINGS: Transvaginal and transabdominal grayscale, color and spectral Doppler ultrasound of the pelvis Anteverted uterus measures approximately 10.5 x 5.1 x 5.3 cm. Myometrium is within normal limits. Endometrium is homogeneous and measures approximately 2 millimeters in thickness. A small volume of free fluid is present in the pelvis. Several adjacent functional right ovarian cysts measure up to 1.3 cm. The ovaries are otherwise unremarkable and measure 3 x 2.1 x 3 cm on the right and 2 x 2.2 x 2 cm on the left. Normal spectral Doppler waveforms in both ovaries. IMPRESSION: Functional right ovarian cyst measures less than 3 cm in diameter. A small volume of free fluid is likely associated and physiologic in nature. No follow-up is required based on consensus criteria. No evidence of ovarian torsion. Transcribed By: MB Dictated By: ELIZABETH LANGLEY MD Electronically Authenticated By: ELIZABETH LANGLEY MD Signed Date/Time: 04/18/18808 DD/ 6 TD/TT: 04/18/18806 [facility] [address] [place] [address] Cat Scan Report Signed Patient: ANNALISA STATON MR#: [id number] : 1990 Acct:[id number] Age/Sex: 28 / F ADM Date: 04/18/18 Loc: ED Attending Dr: Ordering Physician: HANNAH GARCIA MD Date of Service: 04/18/18 Procedure(s): CT abdomen pelvis w con Accession Number(s): [id number] cc: HANNAH GARCIA MD CT ABDOMEN PELVIS WITH CONTRAST: HISTORY: Continued diffuse abdominal pain, leukocytosis. COMPARISON: 04/16/18. TECHNIQUE: Helical CT in 1.25mm intervals following IV contrast. Sagittal and coronal reconstructions. FINDINGS: Lung bases: Normal. Liver: Normal. Biliary system: Normal. Pancreas: Normal. Spleen: Normal. Kidneys/ureters/bladder: Normal. Adrenal glands: Normal. Aorta: Normal. Intestines: Normal. Appendix: Normal. Pelvic viscera: 2 cm cystic lesion in the right ovary has resolved. The uterus and adnexa are unremarkable on today's exam. Ascites: Small pelvic ascites has developed probably related to ovarian cyst. Adenopathy: None. Musculoskeletal: The bony structures are intact. There is a 2.2 cm focus of ill-defined enhancement in the lower right lower abdominal muscles which is best demonstrated on image 153, series 2. The etiology of this is unclear. Recent surgical procedure? Otherwise a focus of infection could be considered. Please correlate with the patient's clinical presentation and history. IMPRESSION: Right ovarian cyst has resolved. Small pelvic ascites has developed. Ill-defined area of enhancement in the lower abdominal muscles to the left of midline as outlined above. Transcribed By: TTR Dictated By: TEODORA SALOMON JR, MD Electronically Authenticated By: TEODORA SALOMON JR, MD Signed Date/Time: 04/18/181228 DD/ 25 TD/TT: 04/18/181228 - Differential Diagnosis gastroenteritis, tubo-ovarian abscess, bacterial vaginosis, UTI Critical care attestation.: If time is entered above; I have spent that time in minutes in the direct care of this critically ill patient, excluding procedure time. ED Disposition Clinical Impression: Acute abdominal pain, Leukocytosis, Intractable nausea and vomiting Disposition: 09 OP ADMIT IP TO THIS HOSP Is pt being admited?: Yes Does the pt Need Aspirin: No Condition: Fair Instructions: Abdominal Pain (ED) Referrals: PRIMARY CARE, [Referring] - 3-5 Days Time of Disposition: 12:43 (hospitalist paged (Dr Lopez))
[2018-04-18] MEDS ORDERED: NACL 0.9% 1000 ML 1,000 ML IV ONE (07:08)
[2018-04-18 07:20] LABS: Alanine Aminotransferase 15 units/L (7-56); Albumin 4.2 g/dL (3.9-5)
[2018-04-18 07:25] LABS: Bilirubin,Direct < 0.2 mg/dL (0-0.2)
[2018-04-18 07:56] LABS: Bacteria,Urine 1+ /HPF (Negative); Bilirubin,Urine NEG (Negative); Blood,Urine NEG (Negative); Color,Urine Yellow (Yellow); Mucus,Urine FEW /HPF; Protein,Urine <15 mg/dL mg/dL (Negative); Urobilinogen,Urine < 2.0 mg/dL (<2.0)
--- NOTE | 2018-04-18 08:06 | Ultrasound Report ---
FINAL REPORT EXAM: US TRANSVAGINAL HISTORY: abd pain, right adnexal mass seen on previous CT COMPARISONS: 04/16/2018 FINDINGS: Transvaginal and transabdominal grayscale, color and spectral Doppler ultrasound of the pelvis Anteverted uterus measures approximately 10.5 x 5.1 x 5.3 cm. Myometrium is within normal limits. End ometrium is homogeneous and measures approximately 2 millimeters in thickness. A small volume of free fluid is present in the pelvis. A functional right ovarian cyst measures up to 1.3 cm. The ovaries a re otherwise unremarkable and measure 3 x 2.1 x 3 cm on the right and 2 x 2.2 x 2 cm on the left. IMPRESSION: Functional right ovarian cyst measures less than 3 cm in diameter. A small volume of free fluid is li trey associated and physiologic in nature. No follow-up is required based on consensus criteria. No e vidence of ovarian torsion.
--- NOTE | 2018-04-18 08:09 | Ultrasound Report ---
FINAL REPORT EXAM: US PELVIS DUPLEX DOPPLER COMP HISTORY: abd pain, right adnexal mass seen on previous CT COMPARISONS: 04/16/2018 FINDINGS: Transvaginal and transabdominal grayscale, color and spectral Doppler ultrasound of the pelvis Anteverted uterus measures approximately 10.5 x 5.1 x 5.3 cm. Myometrium is within normal limits. End ometrium is homogeneous and measures approximately 2 millimeters in thickness. A small volume of free fluid is present in the pelvis. Several adjacent functional right ovarian cysts measure up to 1.3 cm . The ovaries are otherwise unremarkable and measure 3 x 2.1 x 3 cm on the right and 2 x 2.2 x 2 cm o n the left. Normal spectral Doppler waveforms in both ovaries. IMPRESSION: Functional right ovarian cyst measures less than 3 cm in diameter. A small volume of free fluid is li trey associated and physiologic in nature. No follow-up is required based on consensus criteria. No e vidence of ovarian torsion.
[2018-04-18] MEDS ORDERED: TYLENOL PO ONE (08:57)
[2018-04-18] MEDS ORDERED: REGLAN ONE (10:13)
[2018-04-18] MEDS ORDERED: DILAUDID ONE (10:14)
[2018-04-18] MEDS ORDERED: REGLAN IV ONE (10:17)
[2018-04-18] MEDS ORDERED: DILAUDID IV ONE (10:17)
--- NOTE | 2018-04-18 12:33 | Cat Scan Report ---
CT ABDOMEN PELVIS WITH CONTRAST: HISTORY: Continued diffuse abdominal pain, leukocytosis. COMPARISON: 04/16/18. TECHNIQUE: Helical CT in 1.25mm intervals following IV contrast. Sagittal and coronal reconstructions. FINDINGS: Lung bases: Normal. Liver: Normal. Biliary system: Normal. Pancreas: Normal. Spleen: Normal. Kidneys/ureters/bladder: Normal. Adrenal glands: Normal. Aorta: Normal. Intestines: Normal. Appendix: Normal. Pelvic viscera: 2 cm cystic lesion in the right ovary has resolved. The uterus and adnexa are unremarkable on today's exam. Ascites: Small pelvic ascites has developed probably related to ovarian cyst. Adenopathy: None. Musculoskeletal: The bony structures are intact. There is a 2.2 cm focus of ill-defined enhancement in the lower right lower abdominal muscles which is best demonstrated on image 153, series 2. The etiology of this is unclear. Recent surgical procedure? Otherwise a focus of infection could be considered. Please correlate with the patient's clinical presentation and history. IMPRESSION: Right ovarian cyst has resolved. Small pelvic ascites has developed. Ill-defined area of enhancement in the lower abdominal muscles to the left of midline as outlined above.
[2018-04-18] MEDS: DILAUDID IV PRN ×2 (17:46→22:14)
--- NOTE | 2018-04-19 00:29 | History and Physical Report ---
History of Present Illness Date of examination: 04/18/18 Date of admission: 04/18/18 12:51 Chief complaint: Acute abdominal pain for 3 days History of present illness: 28-year-old female presented with chief complaint of abdominal pain. Patient states she's had diffuse abdominal pain for the past 3 days. Patient describes pain as pressure and tightening in nature. Patient also admits to nausea vomiting and diarrhea. Denies history of fever. Patient denies dysuria or vaginal discharge.No fever or chills Location: Abdomen Duration: [3 days] Quality: Pressure/tightening Severity: 12/08 Past Medical History Hx Hypertension: Yes (2004 ) Surgical History Additional Surgical History: x3. left breast mass drained Family History Family history: no significant Social History Smoking Status: Never Smoker Substance Use Type: Marijuana Review of Systems ROS: Stated complaint: N/V Other details as noted in HPI Constitutional: denies: fever Eyes: denies: eye pain ENT: denies: throat pain Respiratory: no symptoms reported Cardiovascular: denies: chest pain Endocrine: no symptoms reported Gastrointestinal: abdominal pain, nausea, vomiting, diarrhea Genitourinary: denies: dysuria, discharge Musculoskeletal: denies: back pain Neurological: denies: headache Medications and Allergies Allergies Allergy/AdvReac Type Severity Reaction Status Date / Time Penicillins Allergy Unknown Verified 01/17/13 00:06 Home Medications Medication Instructions Recorded Confirmed Last Taken Type No Known Home Medications [No 04/18/18 04/18/18 Unknown History Reported Home Medications] Active Meds: Active Medications Hydromorphone HCl (Dilaudid) 0.5 mg IV Q3H PRN PRN Reason: Pain , Severe (7-10) Last Admin: 04/18/18 22:14 Dose: 0.5 mg Documented by: Exam - Constitutional Vitals: Temp Pulse Resp BP Pulse Ox 99.3 F 70 15 127/84 99 04/18/18 16:25 04/18/18 16:25 04/18/18 16:25 04/18/18 16:25 04/18/18 16:25 General appearance: Present: no acute distress, well-nourished - EENT Eyes: Present: PERRL ENT: hearing intact, clear oral mucosa - Neck Neck: Present: supple, normal ROM - Respiratory Respiratory effort: normal Respiratory: bilateral: CTA - Cardiovascular Heart rate: 78 Rhythm: regular Heart Sounds: Present: S1 & S2. Absent: rub, click - Extremities Extremities: no ischemia, pulses intact, pulses symmetrical, No edema Peripheral Pulses: within normal limits - Abdominal General gastrointestinal: Present: tender, non-distended, normal bowel sounds Localized gastrointestinal: tender: RLQ Female genitourinary: Present: normal - Integumentary Integumentary: Present: clear, warm, dry - Musculoskeletal Musculoskeletal: gait normal, strength equal bilaterally - Psychiatric Psychiatric: appropriate mood/affect, intact judgment & insight - Neurologic Neurologic: CNII-XII intact, moves all extremities - Allied Health Allied health notes reviewed: nursing, case management Results - Labs CBC & Chem 7: 04/18/18 05:21 04/18/18 05:21 Labs: Laboratory Last Values WBC 13.1 K/mm3 (4.5-11.0) H 04/18/18 05:21 RBC 4.22 M/mm3 (3.65-5.03) 04/18/18 05:21 Hgb 11.1 gm/dl (10.1-14.3) 04/18/18 05:21 Hct 34.8 % (30.3-42.9) 04/18/18 05:21 MCV 82 fl (79-97) 04/18/18 05:21 MCH 26 pg (28-32) L 04/18/18 05:21 MCHC 32 % (30-34) 04/18/18 05:21 RDW 17.4 % (13.2-15.2) H 04/18/18 05:21 Plt Count 553 K/mm3 (140-440) H 04/18/18 05:21 Lymph % (Auto) 19.1 % (13.4-35.0) 04/18/18 05:21 [place] % (Auto) 6.3 % (0.0-7.3) 04/18/18 05:21 Eos % (Auto) 0.9 % (0.0-4.3) 04/18/18 05:21 Baso % (Auto) 0.9 % (0.0-1.8) 04/18/18 05:21 Lymph # 2.5 K/mm3 (1.2-5.4) 04/18/18 05:21 [place] # 0.8 K/mm3 (0.0-0.8) 04/18/18 05:21 Eos # 0.1 K/mm3 (0.0-0.4) 04/18/18 05:21 Baso # 0.1 K/mm3 (0.0-0.1) 04/18/18 05:21 Seg Neutrophils % 72.8 % (40.0-70.0) H 04/18/18 05:21 Seg Neutrophils # 9.5 K/mm3 (1.8-7.7) H 04/18/18 05:21 Sodium 139 mmol/L (137-145) 04/18/18 05:21 Potassium 3.8 mmol/L (3.6-5.0) 04/18/18 05:21 Chloride 104.6 mmol/L (98-107) 04/18/18 05:21 Carbon Dioxide 19 mmol/L (22-30) L 04/18/18 05:21 Anion Gap 19 mmol/L 04/18/18 05:21 BUN 10 mg/dL (7-17) 04/18/18 05:21 Creatinine 0.9 mg/dL (0.7-1.2) 04/18/18 05:21 Estimated GFR > 60 ml/min 04/18/18 05:21 BUN/Creatinine Ratio 11 % 04/18/18 05:21 Glucose 94 mg/dL (65-100) 04/18/18 05:21 Calcium 9.3 mg/dL (8.4-10.2) 04/18/18 05:21 Total Bilirubin 0.30 mg/dL (0.1-1.2) 04/18/18 05:21 Direct Bilirubin < 0.2 mg/dL (0-0.2) 04/18/18 05:21 AST 19 units/L (5-40) 04/18/18 05:21 ALT 15 units/L (7-56) 04/18/18 05:21 Alkaline Phosphatase 57 units/L (35-129) 04/18/18 05:21 Total Protein 7.6 g/dL (6.3-8.2) 04/18/18 05:21 Albumin 4.2 g/dL (3.9-5) 04/18/18 05:21 Albumin/Globulin Ratio 1.2 % 04/18/18 05:21 HCG, Qual Negative (Negative) 04/18/18 05:21 Urine Color Yellow (Yellow) 04/18/18 07:42 Urine Turbidity Slightly-cloudy (Clear) 04/18/18 07:42 Urine pH 7.0 (5.0-7.0) 04/18/18 07:42 Ur Specific [place] 1.014 (1.003-1.030) 04/18/18 07:42 Urine Protein <15 mg/dl mg/dL (Negative) 04/18/18 07:42 Urine Glucose (UA) Neg mg/dL (Negative) 04/18/18 07:42 Urine Ketones 20 mg/dL (Negative) 04/18/18 07:42 Urine Blood Neg (Negative) 04/18/18 07:42 Urine Nitrite Neg (Negative) 04/18/18 07:42 Urine Bilirubin Neg (Negative) 04/18/18 07:42 Urine Urobilinogen < 2.0 mg/dL (<2.0) 04/18/18 07:42 Ur Leukocyte Esterase Tr (Negative) 04/18/18 07:42 Urine WBC (Auto) 3.0 /HPF (0.0-6.0) 04/18/18 07:42 Urine RBC (Auto) 2.0 /HPF (0.0-6.0) 04/18/18 07:42 U Epithel Cells (Auto) 9.0 /HPF (0-13.0) 04/18/18 07:42 Urine Bacteria (Auto) 1+ /HPF (Negative) 04/18/18 07:42 Urine Mucus Few /HPF 04/18/18 07:42 - Imaging and Cardiology EKG: report reviewed Imaging and Cardiology: . US PELVIS DUPLEX DOPPLER COMP HISTORY: abd pain, right adnexal mass seen on previous CT COMPARISONS: 04/16/2018 FINDINGS: Transvaginal and transabdominal grayscale, color and spectral Doppler ultrasound of the pelvis Anteverted uterus measures approximately 10.5 x 5.1 x 5.3 cm. Myometrium is within normal limits. Endometrium is homogeneous and measures approximately 2 millimeters in thickness. A small volume of free fluid is present in the pelvis. Several adjacent functional right ovarian cysts measure up to 1.3 cm. The ovaries are otherwise unremarkable and measure 3 x 2.1 x 3 cm on the right and 2 x 2.2 x 2 cm on the left. Normal spectral Doppler waveforms in both ovaries. IMPRESSION: Functional right ovarian cyst measures less than 3 cm in diameter. A small volume of free fluid is likely associated and physiologic in nature. No follow-up is required based on consensus criteria. No evidence of ovarian torsion. US TRANSVAGINAL HISTORY: abd pain, right adnexal mass seen on previous CT COMPARISONS: 04/16/2018 FINDINGS: Transvaginal and transabdominal grayscale, color and spectral Doppler ultrasound of the pelvis Anteverted uterus measures approximately 10.5 x 5.1 x 5.3 cm. Myometrium is within normal limits. Endometrium is homogeneous and measures approximately 2 millimeters in thickness. A small volume of free fluid is present in the pelvis. A functional right ovarian cyst measures up to 1.3 cm. The ovaries are otherwise unremarkable and measure 3 x 2.1 x 3 cm on the right and 2 x 2.2 x 2 cm on the left. IMPRESSION: Functional right ovarian cyst measures less than 3 cm in diameter. A small volume of free fluid is likely associated and physiologic in nature. No follow-up is required based on consensus criteria. No evidence of ovarian torsion. CT Abdomen CT ABDOMEN PELVIS WITH CONTRAST: HISTORY: Continued diffuse abdominal pain, leukocytosis. COMPARISON: 04/16/18. TECHNIQUE: Helical CT in 1.25mm intervals following IV contrast. Sagittal and coronal reconstructions. FINDINGS: Lung bases: Normal. Liver: Normal. Biliary system: Normal. Pancreas: Normal. Spleen: Normal. Kidneys/ureters/bladder: Normal. Adrenal glands: Normal. Aorta: Normal. Intestines: Normal. Appendix: Normal. Pelvic viscera: 2 cm cystic lesion in the right ovary has resolved. The uterus and adnexa are unremarkable on today's exam. Ascites: Small pelvic ascites has developed probably related to ovarian cyst. Adenopathy: None. Musculoskeletal: The bony structures are intact. There is a 2.2 cm focus of ill-defined enhancement in the lower right lower abdominal muscles which is best demonstrated on image 153, series 2. The etiology of this is unclear. Recent surgical procedure? Otherwise a focus of infection could be considered. Please correlate with the patient's clinical presentation and history. IMPRESSION: Right ovarian cyst has resolved. Small pelvic ascites has developed. Ill-defined area of enhancement in the lower abdominal muscles to the left of midline as outlined above. Assessment and Plan Advance Directives: Yes (Full code) VTE prophylaxis?: Chemical Plan of care discussed with patient/family: Yes - Patient Problems (1) Acute abdominal pain Current Visit: Yes Status: Acute Plan to address problem: Possibly sec to Rt Ovarian cyst which may have resolved bcoz Cyst shows resolution on ABd CT Observation for 23 hours IV Fluids and IV abx (2) Intractable nausea and vomiting Current Visit: Yes Status: Acute Plan to address problem: IV Fluids and symptomatic treatment (3) Ovarian cyst Current Visit: Yes Status: Acute Qualifiers: Laterality: right Qualified Code(s): N83.201 - Unspecified ovarian cyst, right side Plan to address problem: machinery mover consult requested (4) Dehydration Current Visit: Yes Status: Acute Plan to address problem: IV Fluids for now (5) DVT prophylaxis Current Visit: Yes Status: Acute Plan to address problem: on Lovenox and GI prophylaxis
[2018-04-19] MEDS ORDERED: PERCOCET 5/325 PO PRN (00:31)
[2018-04-19] MEDS ORDERED: SODIUM CHLORIDE FLUSH SYRINGE 10 ML IV PRN (00:31)
[2018-04-19] MEDS ORDERED: TYLENOL PO PRN (00:31)
[2018-04-19] MEDS: PEPCID IV SCH ×3 (02:05→21:15)
[2018-04-19] MEDS: NACL 0.9% 1000 ML 1,000 ML IV SCH (03:06)
[2018-04-19] MEDS: DILAUDID IV PRN ×5 (03:09→21:15)
[2018-04-19 05:44] LABS: Basophils # (Auto) 0.1 K/mm3 (0.0-0.1); Basophils % (Auto) 0.7 % (0.0-1.8); Eosinophils % (Auto) 0.6 % (0.0-4.3); Hematocrit 28.9 % (30.3-42.9); Hemoglobin 9.4 gm/dl (10.1-14.3); Lymphocytes # (Auto) 2.3 K/mm3 (1.2-5.4); Lymphocytes % (Auto) 28.9 % (13.4-35.0); Mean Corpuscular HGB Conc 32 % (30-34); Mean Corpuscular Volume 82 fl (79-97); Monocytes # (Auto) 0.8 K/mm3 (0.0-0.8); Monocytes % (Auto) 10.2 % (0.0-7.3); Platelet Count 403 K/mm3 (140-440); Red Blood Count 3.51 M/mm3 (3.65-5.03); Red Cell Distribution Width 17.5 % (13.2-15.2)
[2018-04-19 06:12] LABS: Alanine Aminotransferase 12 units/L (7-56); Albumin 3.4 g/dL (3.9-5); BUN/Creatinine Ratio 15; Blood Urea Nitrogen 9 mg/dL (7-17); Calcium 8.5 mg/dL (8.4-10.2); Hemolysis Index 3
[2018-04-19] MEDS ORDERED: K-DUR PO ONE (09:00)
[2018-04-19] MEDS: SODIUM CHLORIDE FLUSH SYRINGE 10 ML IV SCH ×2 (09:15→21:15)
[2018-04-19] MEDS: ZOFRAN IV PRN ×2 (09:15→16:49)
[2018-04-19] MEDS ORDERED: AFLURIA QUAD 2018-2019 SYRINGE IM ONE (12:00)
--- NOTE | 2018-04-19 12:13 | Progress Note ---
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 (4) Dehydration Current Visit: Yes Status: Acute Plan to address problem: IV Fluids for now (5) DVT prophylaxis Current Visit: Yes Status: Acute Plan to address problem: on Lovenox and GI prophylaxis Subjective Date of service: 04/19/18 Objective - Constitutional Vitals: Vital Signs - 12hr 04/19/18 04/19/18 06:05 11:52 Temperature 98.5 F 98.4 F Pulse Rate 94 H 61 Respiratory 18 19 Rate Blood Pressure 134/89 134/91 O2 Sat by Pulse 99 99 Oximetry - Labs CBC & Chem 7: 04/19/18 04:22 04/19/18 04:22 Labs: Abnormal lab results 04/19/18 04/19/18 Range/Units 04:22 04:22 RBC 3.51 L (3.65-5.03) M/mm3 Hgb 9.4 L (10.1-14.3) gm/dl Hct 28.9 L (30.3-42.9) % MCH 27 L (28-32) pg RDW 17.5 H (13.2-15.2) % [place] % (Auto) 10.2 H (0.0-7.3) % Potassium 3.2 L (3.6-5.0) mmol/L Chloride 107.5 H (98-107) mmol/L Creatinine 0.6 L (0.7-1.2) mg/dL Total Protein 6.2 L (6.3-8.2) g/dL Albumin 3.4 L (3.9-5) g/dL
--- NOTE | 2018-04-19 13:29 | History and Physical Report ---
History of Present Illness Date of examination: 04/19/18 Date of admission: 04/18/18 12:51 Chief complaint: abdominal pain History of present illness: 28-year-old female presented with chief complaint of abdominal pain. Patient states she's had diffuse abdominal pain for the past 3 days and admitted to having pain for years.. She reports pain as stretching not sharp . Patient also admits to nausea vomiting and diarrhea. Denies history of fever. Patient denies dysuria or vaginal discharge.No fever or chills. She is a patient of Dr. Laurent Past History Past Medical History: hypertension Past Surgical History: breast surgery, section (x3) Family/Genetic History: none Social history: single. denies: smoking, alcohol abuse, prescription drug abuse - Obstetrical History : 3 Medications and Allergies Allergies Allergy/AdvReac Type Severity Reaction Status Date / Time Penicillins Allergy Unknown Verified 01/17/13 00:06 Home Medications Medication Instructions Recorded Confirmed Last Taken Type No Known Home Medications [No 04/18/18 04/18/18 Unknown History Reported Home Medications] Active Meds: Active Medications Acetaminophen (Tylenol) 650 mg PO Q4H PRN PRN Reason: Pain MILD(1-3)/Fever >100.5/BROOKS Famotidine (Pepcid) 20 mg IV BID [facility] Last Admin: 04/19/18 09:15 Dose: 20 mg Documented by: Hydromorphone HCl (Dilaudid) 0.5 mg IV Q3H PRN PRN Reason: Pain , Severe (7-10) Last Admin: 04/19/18 12:27 Dose: 0.5 mg Documented by: Sodium Chloride (Nacl 0.9% 1000 Ml) 1,000 mls @ 75 mls/hr IV DIRECT [facility] Last Admin: 04/19/18 03:06 Dose: 75 mls/hr Documented by: Ondansetron HCl (Zofran) 4 mg IV Q8H PRN PRN Reason: Nausea And Vomiting Last Admin: 04/19/18 09:15 Dose: 4 mg Documented by: Oxycodone/Acetaminophen (Percocet 5/325) 1 tab PO Q6H PRN PRN Reason: Pain, Moderate (4-6) Sodium Chloride (Sodium Chloride Flush Syringe 10 Ml) 10 ml IV BID [facility] Last Admin: 02/19/19 09:15 Dose: 10 ml Documented by: Sodium Chloride (Sodium Chloride Flush Syringe 10 Ml) 10 ml IV PRN PRN PRN Reason: LINE FLUSH Review of Systems All systems: negative - Vital Signs Vital signs: Vital Signs Temp Pulse Resp BP Pulse Ox 98.2 F 90 18 165/105 100 04/18/18 04:53 04/18/18 04:53 04/18/18 04:53 04/18/18 04:53 04/18/18 04:53 Temp Pulse Resp BP Pulse Ox 98.4 F 61 19 134/91 99 04/19/18 11:52 04/19/18 11:52 04/19/18 11:52 04/19/18 11:52 04/19/18 11:52 - Physical Exam Breasts: Positive: normal Cardiovascular: Regular rate, Normal S1 Lungs: Positive: Clear to auscultation, Normal air movement Abdomen: Positive: normal appearance, soft, tenderness, normal bowel sounds. Negative: distention, guarding Genitourinary (Female): Positive: normal external genitalia, normal perenium Vulva: both: normal Uterus: Positive: normal size. Negative: tender Extremities: Positive: normal Deep Tendon Reflex Grade: Normal +2 Results Result Diagrams: 04/19/18 04:22 04/19/18 04:22 Abnormal lab results 04/19/18 04/19/18 Range/Units 04:22 04:22 RBC 3.51 L (3.65-5.03) M/mm3 Hgb 9.4 L (10.1-14.3) gm/dl Hct 28.9 L (30.3-42.9) % MCH 27 L (28-32) pg RDW 17.5 H (13.2-15.2) % [place] % (Auto) 10.2 H (0.0-7.3) % Potassium 3.2 L (3.6-5.0) mmol/L Chloride 107.5 H (98-107) mmol/L Creatinine 0.6 L (0.7-1.2) mg/dL Total Protein 6.2 L (6.3-8.2) g/dL Albumin 3.4 L (3.9-5) g/dL All other labs normal. Ultrasound: report reviewed CT scan - abdomen: report reviewed Assessment and Plan A/P HD ovarian cyst ( simple) resolved cyst with physiological fluid recommended treating her UTI with possibly rocphin f/u in our clinic in 1 weeks and US in 4-6 weeks for resolution thanks for consult
--- NOTE | 2018-04-19 14:45 | Discharge Summary ---
Providers - Providers Date of Admission: 04/18/18 12:51 Date of discharge: 04/19/18 Attending physician: KADE CASTILLO 04/19/18 10:43 Consult to Physician [CONS] Routine Comment: Consulting Provider: SWATI MONDRAGON Physician Instructions: Reason For Exam: ovarian cyst Primary care physician: RAMBO DONALD Hospitalization Reason for admission: abdominal pain Condition: Fair Pertinent studies: US PELVIS DUPLEX DOPPLER COMP HISTORY: abd pain, right adnexal mass seen on previous CT COMPARISONS: 04/16/2018 Functional right ovarian cyst measures less than 3 cm in diameter. A small volume of free fluid is likely associated and physiologic in nature. No follow- up is required based on consensus criteria. No evidence of ovarian torsion. CT ABDOMEN PELVIS WITH CONTRAST: HISTORY: Right ovarian cyst has resolved. Small pelvic ascites has developed. Ill-defined area of enhancement in the lower abdominal muscles to the left of midline as outlined above. Hospital course: 28 y/o female presented with abdominal pain, CT abdomen in the ER showed resolving right ovarian cyst. she was admitted for further evaluation and management. 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, outpt followup / Dehydration Resolved with IV Fluids /likely UTI, mild, only 4 WBC in urine no LE, treated with abx - no evidence of sepsis /leukocytosis, likely reactive from cyst rupture /Hypokalemia, repleted / DVT prophylaxis on Lovenox Disposition: - TO HOME OR SELFCARE Time spent for discharge: 34 minutes Core Measure Documentation - Palliative Care Palliative Care/ Comfort Measures: Not Applicable - Core Measures Any of the following diagnoses?: none Exam - Constitutional Vitals: Temp Pulse Resp BP Pulse Ox 98.4 F 61 19 134/91 99 04/19/18 11:52 04/19/18 11:52 04/19/18 11:52 04/19/18 11:52 04/19/18 11:52 General appearance: Present: no acute distress, well-nourished - EENT Eyes: Present: PERRL ENT: hearing intact, clear oral mucosa - Neck Neck: Present: supple, normal ROM - Respiratory Respiratory effort: normal Respiratory: bilateral: CTA - Cardiovascular Heart Sounds: Present: S1 & S2. Absent: rub, click - Extremities Extremities: pulses symmetrical, No edema Peripheral Pulses: within normal limits - Abdominal General gastrointestinal: Present: soft, non-tender, non-distended, normal bowel sounds - Integumentary Integumentary: Present: clear, warm, dry - Musculoskeletal Musculoskeletal: gait normal, strength equal bilaterally - Psychiatric Psychiatric: appropriate mood/affect, intact judgment & insight - Neurologic Neurologic: CNII-XII intact, moves all extremities Plan Activity: advance as tolerated Weight Bearing Status: Non-Weight Bearing (for 6 weeks) Diet: regular Additional Instructions: f/u with obg/hydro generation manager in 4-6 weeks Follow up with: PRIMARY CARE, [Referring] - 3-5 Days Prescriptions: levoFLOXacin [Levaquin TAB] 500 mg PO Q24HR #5 tablet Metoclopramide HCl [Reglan TAB] 5 mg PO TIDAC PRN #14 tablet PRN Reason: Nausea oxyCODONE /ACETAMINOPHEN [Percocet 5/325 mg] 1 tab PO Q6H PRN #7 tablet PRN Reason: Pain, Moderate (4-6)
[2018-04-19] MEDS: LEVAQUIN PO SCH (16:51)
[2018-04-20] MEDS: ZOFRAN IV PRN ×2 (01:03→10:20)
[2018-04-20] MEDS: DILAUDID IV PRN ×3 (01:03→10:21)
[2018-04-20] MEDS: NACL 0.9% 1000 ML 1,000 ML IV SCH (05:20)
[2018-04-20] MEDS: PEPCID IV SCH (10:20)
[2018-04-20] MEDS: LEVAQUIN PO SCH (10:20)
--- NOTE | 2018-04-20 11:44 | Event Note ---
Date: 04/20/18 Patient stated that she could not arrange a ride and she wants to leave in the morning, she is getting discharged today. No new event change.
[2018-04-20 12:27] VITALS: BP 128/77
[2018-04-20] MEDS ORDERED: PEPCID PO SCH (22:00)
== END 2018-04-20 14:00 | disposition home or self-care (01) | DRG 760 ==
LOC: ED 04:42 → 3A 12:51
PROVIDERS: ADMIT Internal Medicine; ATTEND Internal Medicine
PROC: 3E0234Z Introduction of Serum, Toxoid and Vaccine into Muscle, Percutaneous Approach (ICD-10-PCS; principal; 2018-04-19)
DX: N83.201 Unspecified ovarian cyst, right side (principal); N39.0 Urinary tract infection, site not specified; R11.2 Nausea with vomiting, unspecified; E86.0 Dehydration; E87.6 Hypokalemia; Z23 Encounter for immunization
CPT/HCPCS: 36415; 74177; 76830; 80048; 80053; 80076; 81001; 81025; 83690; 84703; 85007; 85025; 87116; 87210; 87591; 90686; 93975; 96361; 96374; 96375; 96376; 99406; G0378; J1170; J1200; J1885; J2270; J2405; J2765; J7030; Q0162; Q9967

== ENCOUNTER 2019-02-01 17:11 | Emergency (ER) | payer OTHER ==
--- NOTE | 2019-02-01 18:06 | Emergency Department Report ---
Blank Doc - Documentation Documentation: 28-year-old female that presents with abdominal pain with n/v. This initial assessment/diagnostic orders/clinical plan/treatment(s) is/are subject to change based on patient's health status, clinical progression and re- assessment by fellow clinical providers in the ED. Further treatment and workup at subsequent clinical providers discretion. Patient/guardians urged not to elope from the ED as their condition may be serious if not clinically assessed and managed. Initial orders include: 1- Patient sent to [facility] for further evaluation and treatment 2- labs 3- UA
[2019-02-01 18:52] LABS: Bilirubin,Urine NEG (Negative); Blood,Urine SM (Negative); Color,Urine Amber (Yellow); Mucus,Urine 3+ /HPF; Urobilinogen,Urine < 2.0 mg/dL (<2.0)
[2019-02-01 19:14] LABS: Hemoglobin 11.4 gm/dl (10.1-14.3); Red Blood Count 4.23 M/mm3 (3.65-5.03)
[2019-02-01 19:15] LABS: Hematocrit 34.9 % (30.3-42.9); Mean Corpuscular HGB Conc 33 % (30-34); Mean Corpuscular Volume 83 fl (79-97); Platelet Count 324 K/mm3 (140-440); Red Cell Distribution Width 14.8 % (13.2-15.2)
[2019-02-01 19:21] LABS: Alanine Aminotransferase 31 units/L (7-56); Albumin 4.8 g/dL (3.9-5); BUN/Creatinine Ratio 13; Blood Urea Nitrogen 12 mg/dL (7-17); Calcium 9.9 mg/dL (8.4-10.2); Hemolysis Index 3
[2019-02-01 20:02] LABS: Basophils % (Manual) 0 % (0.0-1.8); Eosinophils % (Manual) 0 % (0.0-4.3); RBC Morphology Normal; Total Cells Counted 100
[2019-02-01] MEDS ORDERED: ONDANSETRON 4 MG/2 ML INJ IV ONE (20:14)
[2019-02-01] MEDS ORDERED: SODIUM CHLORIDE 0.9% 1000 ML 1,000 ML IV ONE (20:14)
[2019-02-01] MEDS ORDERED: MORPHINE 4 MG/1 ML INJ IV ONE (20:14)
[2019-02-01] MEDS ORDERED: FAMOTIDINE 20 MG/2 ML INJ IV ONE (20:14)
--- NOTE | 2019-02-01 22:05 | Cat Scan Report ---
CT ABDOMEN AND PELVIS WITH CONTRAST INDICATION / CLINICAL INFORMATION: abdominal pain. TECHNIQUE: Axial CT images were obtained through the abdomen and pelvis after IV contrast. All CT scans at this location are performed using CT dose reduction for ALARA by means of automated exposure control. COMPARISON: None available. FINDINGS: LOWER CHEST: No significant abnormality. LIVER: No significant abnormality. GALLBLADDER: No significant abnormality. BILE DUCTS: No significant abnormality. PANCREAS: No significant abnormality. SPLEEN: No significant abnormality. ADRENALS: No significant abnormality. RIGHT KIDNEY and URETER: No significant abnormality. LEFT KIDNEY and URETER: No significant abnormality. STOMACH and SMALL BOWEL: No significant abnormality. COLON: No significant abnormality. APPENDIX: No significant abnormality. PERITONEUM: No free fluid. No free air. No fluid collection. LYMPH NODES: No significant adenopathy. AORTA and ARTERIES: No significant abnormality. IVC and VEINS: No significant abnormality. URINARY BLADDER: No significant abnormality. REPRODUCTIVE ORGANS: No significant abnormality. Several fluid-filled tubular structures are present surrounding the posterior aspect of the uterus, this raises a question of fluid within the fallopian tubes, pelvic inflammatory disease should be considered ADDITIONAL FINDINGS: None. SKELETAL SYSTEM: No significant abnormality. IMPRESSION: 1. Possible pelvic inflammatory disease as described ultrasound examination may be of benefit for fur ther evaluation Signer Name: Diego Espinoza MD Signed: 02/01/2019 10:01 PM Workstation Name: [id number]
[2019-02-02] MEDS ORDERED: KETOROLAC 30 MG/1 ML INJ IV ONE (00:59)
[2019-02-02] MEDS ORDERED: ONDANSETRON 4 MG/2 ML INJ IV ONE (00:59)
[2019-02-02] MEDS ORDERED: ONDANSETRON 4 MG/2 ML INJ ONE (01:01)
[2019-02-02] MEDS ORDERED: KETOROLAC 30 MG/1 ML INJ ONE (01:01)
--- NOTE | 2019-02-02 03:19 | Emergency Department Report ---
ED Abdominal Pain HPI - General Chief Complaint: Nausea/Vomiting/Diarrhea Stated Complaint: FLU LIKE SYMPTOMS Time Seen by Provider: 02/01/19 18:06 Source: patient Mode of arrival: Ambulatory Limitations: No Limitations - History of Present Illness Initial Comments: Patient is a 28-year-old -[place] female with a history of hypertension who presents to the ED with complaint of acute onset persistent diffuse lower abdominal pain with nausea and vomiting and diarrhea for the last 24 hours. Patient also complains of chills. Patient also admits that she is still on her menstrual cycle at this time. Patient states the patient has worsened in the last 12 hours. Patient denies dizziness, fever, dysuria, urinary frequency and urgency, vaginal discharge, low back pain, chest pain, shortness of breath or change in vision or syncope. MD Complaint: abdominal pain, other (nausea and vomiting, diarrhea) -: Sudden, hour(s) (24) Location: suprapubic Radiation: none Migration to: no migration Severity: severe Severity scale (0 -10): 7 Quality: cramping, aching, sharp Improves With: nothing Worsens With: nothing Associated Symptoms: denies other symptoms, nausea, vomiting, diarrhea, anorexia. denies: chills, hematemesis, hematochezia, melena, hematuria, syncope, other - Related Data LMP Date: 01/29/19 LMP (females 10-50): this week Previous Rx's Medication Instructions Recorded Last Taken Type Metoclopramide HCl [Reglan TAB] 5 mg PO TIDAC PRN #14 tablet 04/19/18 Unknown Rx levoFLOXacin [Levaquin TAB] 500 mg PO Q24HR #5 tablet 04/19/18 Unknown Rx oxyCODONE /ACETAMINOPHEN [Percocet 1 tab PO Q6H PRN #7 tablet 04/19/18 Unknown Rx 5/325 mg] Azithromycin [Zithromax Z-LYNNE] 250 mg PO DAILY #6 tablet 07/15/18 Unknown Rx HYDROcodone/ACETAMINOPHEN 15 ml PO Q6H PRN #150 solution 07/15/18 Unknown Rx [Hydrocodon-Acetamin 7.5-325/15] prednisoLONE [Prednisolone] 45 mg PO DAILY 5 Days solution 07/15/18 Unknown Rx Ciprofloxacin HCl [Ciprofloxacin 500 mg PO Q12HR #20 tab 02/02/19 Unknown Rx TAB] Ibuprofen [Motrin] 800 mg PO Q8HR PRN #24 tablet 02/02/19 Unknown Rx Ondansetron [Zofran Odt] 4 mg PO Q6HR PRN #20 tab.rapdis 02/02/19 Unknown Rx metroNIDAZOLE [Flagyl] 500 mg PO Q12HR #14 tab 02/02/19 Unknown Rx traMADoL [Ultram] 50 mg PO Q6HR PRN #12 tablet 02/02/19 Unknown Rx Allergies Allergy/AdvReac Type Severity Reaction Status Date / Time Penicillins Allergy Unknown Verified 01/17/13 00:06 ED Review of Systems ROS: Stated complaint: FLU LIKE SYMPTOMS Other details as noted in HPI Constitutional: denies: chills, fever Eyes: denies: eye pain, eye discharge, vision change ENT: denies: ear pain, throat pain Respiratory: denies: cough, shortness of breath, wheezing Cardiovascular: denies: chest pain, palpitations Endocrine: no symptoms reported Gastrointestinal: abdominal pain, nausea, vomiting, diarrhea Genitourinary: denies: urgency, dysuria, discharge Musculoskeletal: denies: back pain, joint swelling, arthralgia Skin: denies: rash, lesions Neurological: denies: headache, weakness, paresthesias Psychiatric: denies: anxiety, depression Hematological/Lymphatic: denies: easy bleeding, easy bruising ED Past Medical Hx - Past Medical History Previous Medical History?: Yes Hx Hypertension: Yes Hx Heart Attack/AMI: No Hx Congestive Heart Failure: No Hx Diabetes: No Hx Deep Vein Thrombosis: No Hx Liver Disease: No Hx Renal Disease: No Hx Sickle Cell Disease: No Hx Seizures: No Hx Asthma: No Hx COPD: No Hx HIV: No Additional medical history: C-sections x 3 - Surgical History Past Surgical History?: Yes Hx Pacemaker: No Hx Internal Defibrillator: No Additional Surgical History: x3. left breast mass drained - Social History Smoking Status: Never Smoker - Medications Home Medications: Home Medications Medication Instructions Recorded Confirmed Last Taken Type Metoclopramide HCl [Reglan TAB] 5 mg PO TIDAC PRN #14 tablet 04/19/18 Unknown Rx levoFLOXacin [Levaquin TAB] 500 mg PO Q24HR #5 tablet 04/19/18 Unknown Rx oxyCODONE /ACETAMINOPHEN [Percocet 1 tab PO Q6H PRN #7 tablet 04/19/18 Unknown Rx 5/325 mg] Azithromycin [Zithromax Z-LYNNE] 250 mg PO DAILY #6 tablet 07/15/18 Unknown Rx HYDROcodone/ACETAMINOPHEN 15 ml PO Q6H PRN #150 solution 07/15/18 Unknown Rx [Hydrocodon-Acetamin 7.5-325/] prednisoLONE [Prednisolone] 45 mg PO DAILY 5 Days solution 07/15/18 Unknown Rx Ciprofloxacin HCl [Ciprofloxacin 500 mg PO Q12HR #20 tab 02/02/19 Unknown Rx TAB] Ibuprofen [Motrin] 800 mg PO Q8HR PRN #24 tablet 02/02/19 Unknown Rx Ondansetron [Zofran Odt] 4 mg PO Q6HR PRN #20 tab.rapdis 02/02/19 Unknown Rx metroNIDAZOLE [Flagyl] 500 mg PO Q12HR #14 tab 02/02/19 Unknown Rx traMADoL [Ultram] 50 mg PO Q6HR PRN #12 tablet 02/02/19 Unknown Rx ED Physical Exam - General Limitations: No Limitations General appearance: alert, in no apparent distress - Head Head exam: Present: atraumatic, normocephalic - Eye Eye exam: Present: normal appearance, PERRL, EOMI Pupils: Present: normal accommodation - ENT ENT exam: Present: normal exam, normal orophraynx, mucous membranes moist, TM's normal bilaterally, normal external ear exam - Neck Neck exam: Present: normal inspection, full ROM - Respiratory Respiratory exam: Present: normal lung sounds bilaterally. Absent: respiratory distress, wheezes, stridor, chest wall tenderness, prolonged expiratory - Cardiovascular Cardiovascular Exam: Present: regular rate, normal rhythm, normal heart sounds. Absent: systolic murmur, diastolic murmur, rubs, gallop - GI/Abdominal GI/Abdominal exam: Present: soft, tenderness (palpable suprapubic and periumbilical tenderness with no guarding or rebound), normal bowel sounds. Absent: guarding, organomegaly - External exam: Present: normal external exam. Absent: erythema, lacerations Speculum exam: Present: vaginal discharge, cervical discharge, vaginal bleeding (mild trace of blood in the vaginal vault). Absent: normal speculum exam Bi-manual exam: Present: normal bi-manual exam, other (female RN associate professor of art present, Ms. Nichols). Absent: cervical motion tendernes, adnexal tenderness, uterine tenderness - Extremities Exam Extremities exam: Present: normal inspection, full ROM, normal capillary refill - Back Exam Back exam: Present: normal inspection, full ROM. Absent: tenderness, CVA tenderness (R), muscle spasm, paraspinal tenderness, vertebral tenderness - Neurological Exam Neurological exam: Present: alert, oriented X3, CN II-XII intact, normal gait, reflexes normal - Psychiatric Psychiatric exam: Present: normal affect, normal mood - Skin Skin exam: Present: warm, dry, intact, normal color. Absent: rash ED Course Vital Signs 02/01/19 02/01/19 18:05 20:39 Temperature 99.4 F Pulse Rate 82 Respiratory 18 18 Rate Blood Pressure 140/98 O2 Sat by Pulse 100 Oximetry ED Medical Decision Making - Lab Data Result diagrams: 02/01/19 18:38 02/01/19 18:38 - Radiology Data Radiology results: report reviewed, image [place] [address] Cat Scan Report Signed Patient: ANNALISA STATON MR#: [id number] : 1990 Acct:[id number] Age/Sex: 28 / F ADM Date: 02/01/19 Loc: ED Attending Dr: Ordering Physician: TOSHA STRINGER Date of Service: 02/01/19 Procedure(s): CT abdomen pelvis w con Accession Number(s): [id number] cc: TOSHA STRINGER CT ABDOMEN AND PELVIS WITH CONTRAST INDICATION / CLINICAL INFORMATION: abdominal pain. TECHNIQUE: Axial CT images were obtained through the abdomen and pelvis after IV contrast. All CT scans at this location are performed using CT dose reduction for ALARA by means of automated exposure control. COMPARISON: None available. FINDINGS: LOWER CHEST: No significant abnormality. LIVER: No significant abnormality. GALLBLADDER: No significant abnormality. BILE DUCTS: No significant abnormality. PANCREAS: No significant abnormality. SPLEEN: No significant abnormality. ADRENALS: No significant abnormality. RIGHT KIDNEY and URETER: No significant abnormality. LEFT KIDNEY and URETER: No significant abnormality. STOMACH and SMALL BOWEL: No significant abnormality. COLON: No significant abnormality. APPENDIX: No significant abnormality. PERITONEUM: No free fluid. No free air. No fluid collection. LYMPH NODES: No significant adenopathy. AORTA and ARTERIES: No significant abnormality. IVC and VEINS: No significant abnormality. URINARY BLADDER: No significant abnormality. REPRODUCTIVE ORGANS: No significant abnormality. Several fluid-filled tubular s tructures are present surrounding the posterior aspect of the uterus, this raises a question of fluid within the fallopian tubes, pelvic inflammatory disease should be considered ADDITIONAL FINDINGS: None. SKELETAL SYSTEM: No significant abnormality. IMPRESSION: 1. Possible pelvic inflammatory disease as described ultrasound examination may be of benefit for further evaluation Signer Name: Diego Espinoza MD Signed: 02/01/2019 10:01 PM Workstation Name: [id number] Transcribed By: JULIETA Dictated By: Diego Espinoza MD Electronically Authenticated By: Diego Espinoza MD Signed Date/Time: 02/01/192200 DD/ 55 - Medical Decision Making This is a 28-year-old female who presented to the ED with complaint of acute onset persistent diffuse lower abdominal pain with nausea and vomiting and diarrhea for the last 24 hours. In the ED, patient is alert and oriented 3 and is not in distress. Patient was treated for pain and also given nausea medicine. Lab test results were reviewed and are all unremarkable and on actionable except urinalysis that showed UTI. Pelvic exam showed thick yellowish brown vaginal discharge with no cervical motion tenderness or adnexal tenderness. Abdomen pelvis CT scan with contrast shows no significant abnormality. Several fluid-filled tubular structures are present surrounding the posterior aspect of the uterus, this raises a question of fluid within the fallopian tubes, pelvic inflammatory disease should be considered. On reevaluation, patient's pain is well controlled with medications, pelvic exam does not reveal any signoff PID as cervical motion tenderness and or adnexal tenderness. Patient was therefore discharged home on pain medications, antiemetics, antibiotics and advised to follow-up with her primary care physician in 7-10 days for reevaluation or return to the ED immediately if symptoms get worse. - Differential Diagnosis PID; Gastroenteritis; UTI; STD; Pancreatitis; GERD Critical care attestation.: If time is entered above; I have spent that time in minutes in the direct care of this critically ill patient, excluding procedure time. ED Disposition Clinical Impression: Nausea, vomiting, and diarrhea, Bacterial vaginosis, Viral gastroenteritis, Acute urinary tract infection Abdominal pain Qualifiers: Abdominal location: lower abdomen, unspecified Qualified Code(s): R10.30 - Lower abdominal pain, unspecified Disposition: - TO HOME OR SELFCARE Is pt being admited?: No Does the pt Need Aspirin: No Condition: Stable Instructions: Acute Nausea and Vomiting (ED), Abdominal Pain (ED), Bacterial Vaginosis (ED), Urinary Tract Infection in Women (ED) Additional Instructions: Maintain a complete pelvic rest, take pain medication as needed with food, drink plenty of fluids and follow-up with your [employer]ER physician or primary care physician in 7-10 days for reevaluation. Return to the ED immediately if symptoms get worse. Prescriptions: Ciprofloxacin HCl [Ciprofloxacin TAB] 500 mg PO Q12HR #20 tab metroNIDAZOLE [Flagyl] 500 mg PO Q12HR #14 tab Ibuprofen [Motrin] 800 mg PO Q8HR PRN #24 tablet PRN Reason: Pain , Severe (7-10) traMADoL [Ultram] 50 mg PO Q6HR PRN #12 tablet PRN Reason: Pain Ondansetron [Zofran Odt] 4 mg PO Q6HR PRN #20 tab.rapdis PRN Reason: Nausea Referrals: PRIMARY CARE, [Primary Care Provider] - 3-5 Days Forms: STI Treatment and Prevention Time of Disposition: 03:15 Print Language: KOSOV[place]
[2019-02-02 04:20] VITALS: BP 147/94
== END 2019-02-02 03:50 | disposition home or self-care (01) ==
LOC: ED 17:11
DX: A08.4 Viral intestinal infection, unspecified (principal); N76.0 Acute vaginitis; B96.89 Other specified bacterial agents as the cause of diseases classified elsewhere; N39.0 Urinary tract infection, site not specified; I10 Essential (primary) hypertension; Z98.890 Other specified postprocedural states; Z79.899 Other long term (current) drug therapy; Z88.0 Allergy status to penicillin
CPT/HCPCS: 36415; 74177; 80053; 81001; 83690; 84703; 85007; 85025; 87076; 87086; 87186; 87210; 87591; 96361; 96374; 96375; 99284; J1885; J2270; J2405; J7030; Q9967

== ENCOUNTER 2019-12-13 04:52 | Emergency (ER) | payer OTHER ==
[2019-12-13 06:13] LABS: Hematocrit 35.1 % (30.3-42.9); Hemoglobin 11.8 gm/dl (10.1-14.3); Mean Corpuscular HGB Conc 34 % (30-34); Mean Corpuscular Volume 86 fl (79-97); Platelet Count 390 K/mm3 (140-440); Red Blood Count 4.09 M/mm3 (3.65-5.03)
[2019-12-13 06:16] LABS: Bilirubin,Urine NEG (Negative); Blood,Urine LG (Negative); Color,Urine Red (Yellow); Mucus,Urine 3+ /HPF; Urobilinogen,Urine < 2.0 mg/dL (<2.0)
[2019-12-13 06:19] LABS: Protein,Urine >500 mg/dL (Negative); RBC,Urine > 182.0 /HPF (0.0-6.0)
[2019-12-13 06:30] LABS: Alanine Aminotransferase 28 units/L (7-56); Albumin 4.8 g/dL (3.9-5); BUN/Creatinine Ratio 18; Blood Urea Nitrogen 14 mg/dL (7-17); Calcium 10.3 mg/dL (8.4-10.2); Hemolysis Index 2
[2019-12-13 07:12] LABS: Anisocytosis 1+; Basophils % (Manual) 0 % (0.0-1.8); Eosinophils % (Manual) 0 % (0.0-4.3); Platelet Estimate Consistent w Auto; Total Cells Counted 100
[2019-12-13 08:03] VITALS: BP 132/103
[2019-12-13] MEDS ORDERED: DICYCLOMINE 20 MG/2 ML INJ IM ONE (08:05)
[2019-12-13] MEDS ORDERED: KETOROLAC 30 MG/1 ML INJ IV ONE (08:05)
[2019-12-13] MEDS ORDERED: ONDANSETRON 4 MG/2 ML INJ IV ONE (08:05)
[2019-12-13] MEDS ORDERED: SODIUM CHLORIDE 0.9% 1000 ML 1,000 ML IV ONE (08:05)
--- NOTE | 2019-12-13 08:40 | Emergency Department Report ---
ED N/V/D HPI - General Chief complaint: Abdominal Pain Stated complaint: VOMITING, ABDOMINAL PAIN Time Seen by Provider: 12/13/19 07:50 Source: patient Mode of arrival: Ambulatory Limitations: No Limitations - History of Present Illness Initial comments: It is a 29-year-old female presents emergency room with complaints of nausea, vomiting, diarrhea that began yesterday. She has associated generalized abdominal cramping. States that the last thing she had to eat was a sub- sandwich. He denies anyone else getting sick or any known sick contacts. She denies any recent travel. She denies any urinary symptoms, fever, hematochezia, melena, hematemesis, blood in the stool. She states that her menstrual cycle began 3 days ago. She states that 2 weeks ago she had a EGD and colonoscopy which were both within normal limits per patient. She does endorse marijuana use. She states that she last smoked marijuana couple of days ago. She states that she recurrently has episodes of these symptoms. - Related Data Previous Rx's Medication Instructions Recorded Last Taken Type Metoclopramide HCl [Reglan TAB] 5 mg PO TIDAC PRN #14 tablet 04/19/18 Unknown Rx levoFLOXacin [Levaquin TAB] 500 mg PO Q24HR #5 tablet 04/19/18 Unknown Rx oxyCODONE /ACETAMINOPHEN [Percocet 1 tab PO Q6H PRN #7 tablet 04/19/18 Unknown Rx 5/325 mg] Azithromycin [Zithromax Z-LYNNE] 250 mg PO DAILY #6 tablet 07/15/18 Unknown Rx HYDROcodone/ACETAMINOPHEN 15 ml PO Q6H PRN #150 solution 07/15/18 Unknown Rx [Hydrocodon-Acetamin 7.5-325/15] prednisoLONE [Prednisolone] 45 mg PO DAILY 5 Days solution 07/15/18 Unknown Rx Ciprofloxacin HCl [Ciprofloxacin 500 mg PO Q12HR #20 tab 02/02/19 Unknown Rx TAB] Ibuprofen [Motrin] 800 mg PO Q8HR PRN #24 tablet 02/02/19 Unknown Rx Ondansetron [Zofran Odt] 4 mg PO Q6HR PRN #20 tab.rapdis 02/02/19 Unknown Rx metroNIDAZOLE [Flagyl] 500 mg PO Q12HR #14 tab 02/02/19 Unknown Rx traMADoL [Ultram] 50 mg PO Q6HR PRN #12 tablet 02/02/19 Unknown Rx Dicyclomine [Bentyl] 20 mg PO Q8HR PRN #7 tablet 12/13/19 Unknown Rx Nitrofurantoin Hawkins/M-Cryst 100 mg PO BID 5 Days #10 capsule 12/13/19 Unknown Rx [Macrobid CAP] Ondansetron [Zofran Odt] 4 mg PO Q8HR PRN #10 tab.rapdis 12/13/19 Unknown Rx Allergies Allergy/AdvReac Type Severity Reaction Status Date / Time Penicillins Allergy Unknown Verified 01/17/13 00:06 ED Review of Systems ROS: Stated complaint: VOMITING, ABDOMINAL PAIN Other details as noted in HPI Comment: All other systems reviewed and negative ED Past Medical Hx - Past Medical History Hx Hypertension: Yes Hx Heart Attack/AMI: No Hx Congestive Heart Failure: No Hx Diabetes: No Hx Deep Vein Thrombosis: No Hx Liver Disease: No Hx Renal Disease: No Hx Sickle Cell Disease: No Hx Seizures: No Hx Asthma: No Hx COPD: No Hx HIV: No Additional medical history: C-sections x 3 - Surgical History Hx Pacemaker: No Hx Internal Defibrillator: No Additional Surgical History: x3. left breast mass drained - Social History Smoking Status: Never Smoker Substance Use Type: Marijuana - Medications Home Medications: Home Medications Medication Instructions Recorded Confirmed Last Taken Type Metoclopramide HCl [Reglan TAB] 5 mg PO TIDAC PRN #14 tablet 04/19/18 Unknown Rx levoFLOXacin [Levaquin TAB] 500 mg PO Q24HR #5 tablet 04/19/18 Unknown Rx oxyCODONE /ACETAMINOPHEN [Percocet 1 tab PO Q6H PRN #7 tablet 04/19/18 Unknown Rx 5/325 mg] Azithromycin [Zithromax Z-LYNNE] 250 mg PO DAILY #6 tablet 07/15/18 Unknown Rx HYDROcodone/ACETAMINOPHEN 15 ml PO Q6H PRN #150 solution 07/15/18 Unknown Rx [Hydrocodon-Acetamin 7.5-325/15] prednisoLONE [Prednisolone] 45 mg PO DAILY 5 Days solution 07/15/18 Unknown Rx Ciprofloxacin HCl [Ciprofloxacin 500 mg PO Q12HR #20 tab 02/02/19 Unknown Rx TAB] Ibuprofen [Motrin] 800 mg PO Q8HR PRN #24 tablet 02/02/19 Unknown Rx Ondansetron [Zofran Odt] 4 mg PO Q6HR PRN #20 tab.rapdis 02/02/19 Unknown Rx metroNIDAZOLE [Flagyl] 500 mg PO Q12HR #14 tab 02/02/19 Unknown Rx traMADoL [Ultram] 50 mg PO Q6HR PRN #12 tablet 02/02/19 Unknown Rx Dicyclomine [Bentyl] 20 mg PO Q8HR PRN #7 tablet 12/13/19 Unknown Rx Nitrofurantoin Hawkins/M-Cryst 100 mg PO BID 5 Days #10 capsule 12/13/19 Unknown Rx [Macrobid CAP] Ondansetron [Zofran Odt] 4 mg PO Q8HR PRN #10 tab.rapdis 12/13/19 Unknown Rx ED Physical Exam - General Limitations: No Limitations General appearance: alert, in no apparent distress - Head Head exam: Present: atraumatic, normocephalic - Eye Eye exam: Present: normal appearance - ENT ENT exam: Present: mucous membranes moist - Respiratory Respiratory exam: Present: normal lung sounds bilaterally. Absent: respiratory distress, wheezes, rales, rhonchi, stridor, chest wall tenderness, accessory muscle use, decreased breath sounds, prolonged expiratory - Cardiovascular Cardiovascular Exam: Present: regular rate, normal rhythm, normal heart sounds. Absent: systolic murmur, diastolic murmur, rubs, gallop - GI/Abdominal GI/Abdominal exam: Present: soft, tenderness (mild generalized), normal bowel sounds. Absent: distended, guarding, rebound, rigid - Neurological Exam Neurological exam: Present: alert, oriented X3 - Psychiatric Psychiatric exam: Present: normal affect, normal mood - Skin Skin exam: Present: warm, dry, intact ED Course Vital Signs 12/13/19 05:07 Temperature 99.0 F Pulse Rate 77 Respiratory 18 Rate Blood Pressure 132/103 O2 Sat by Pulse 100 Oximetry ED Medical Decision Making - Lab Data Result diagrams: 12/13/19 05:28 12/13/19 05:28 Lab Results 12/13/19 12/13/19 12/13/19 Range/Units 05:28 05:28 05:28 WBC 8.9 (4.5-11.0) K/mm3 RBC 4.09 (3.65-5.03) M/mm3 Hgb 11.8 (10.1-14.3) gm/dl Hct 35.1 (30.3-42.9) % MCV 86 (79-97) fl MCH 29 (28-32) pg MCHC 34 (30-34) % RDW 17.0 H (13.2-15.2) % Plt Count 390 (140-440) K/mm3 Add Manual Diff Complete Total Counted 100 Seg Neutrophils % Clinical Data Analyst Seg Neuts % (Manual) 93.0 H (40.0-70.0) % Band Neutrophils % 0 % Lymphocytes % (Manual) 6.0 L (13.4-35.0) % Reactive Lymphs % (Man) 0 % Monocytes % (Manual) 1.0 (0.0-7.3) % Eosinophils % (Manual) 0 (0.0-4.3) % Basophils % (Manual) 0 (0.0-1.8) % Metamyelocytes % 0 % Myelocytes % 0 % Promyelocytes % 0 % Blast Cells % 0 % Nucleated RBC % Not Reportable Seg Neutrophils # Man 8.3 H (1.8-7.7) K/mm3 Band Neutrophils # 0.0 K/mm3 Lymphocytes # (Manual) 0.5 L (1.2-5.4) K/mm3 Abs React Lymphs (Man) 0.0 K/mm3 Monocytes # (Manual) 0.1 (0.0-0.8) K/mm3 Eosinophils # (Manual) 0.0 (0.0-0.4) K/mm3 Basophils # (Manual) 0.0 (0.0-0.1) K/mm3 Metamyelocytes # 0.0 K/mm3 Myelocytes # 0.0 K/mm3 Promyelocytes # 0.0 K/mm3 Blast Cells # 0.0 K/mm3 WBC Morphology Not Reportable Hypersegmented Neuts Not Reportable Hyposegmented Neuts Not Reportable Hypogranular Neuts Not Reportable Smudge Cells Not Reportable Toxic Granulation Not Reportable Toxic Vacuolation Not Reportable Dohle Bodies Not Reportable Pelger-Huet Anomaly Not Reportable Bhavana Rods Not Reportable Platelet Estimate Consistent w auto Clumped Platelets Not Reportable Plt Clumps, EDTA Not Reportable Large Platelets Not Reportable Giant Platelets Not Reportable Platelet Satelliting Not Reportable Plt Morphology Comment Not Reportable RBC Morphology Not Reportable Dimorphic RBCs Not Reportable Polychromasia Not Reportable Hypochromasia Not Reportable Poikilocytosis Not Reportable Anisocytosis 1+ Microcytosis Not Reportable Macrocytosis Not Reportable Spherocytes Not Reportable Pappenheimer Bodies Not Reportable Sickle Cells Not Reportable Target Cells Not Reportable Tear Drop Cells Not Reportable Ovalocytes Not Reportable Helmet Cells Not Reportable Paula-P[place]uliar Bodies Not Reportable [place] Rings Not Reportable [place] Cells Not Reportable Bite Cells Not Reportable Crenated Cell Not Reportable Elliptocytes Not Reportable Acanthocytes (Spur) Not Reportable Rouleaux Not Reportable Hemoglobin C Crystals Not Reportable Schistocytes Not Reportable Malaria parasites Not Reportable Srinivas Bodies Not Reportable Hem Pathologist Commnt No Sodium 141 (137-145) mmol/L Potassium 4.2 (3.6-5.0) mmol/L Chloride 104.1 (98-107) mmol/L Carbon Dioxide 16 L (22-30) mmol/L Anion Gap 25 mmol/L BUN 14 (7-17) mg/dL Creatinine 0.8 (0.6-1.2) mg/dL Estimated GFR > 60 ml/min BUN/Creatinine Ratio 18 % Glucose 150 H (65-100) mg/dL Calcium 10.3 H (8.4-10.2) mg/dL Total Bilirubin 0.60 (0.1-1.2) mg/dL AST 34 (5-40) units/L ALT 28 (7-56) units/L Alkaline Phosphatase 58 (35-129) units/L Total Creatine Kinase (30-135) units/L Total Protein 8.3 H (6.3-8.2) g/dL Albumin 4.8 (3.9-5) g/dL Albumin/Globulin Ratio 1.4 % HCG, Qual Negative (Negative) Urine Color (Yellow) Urine Turbidity (Clear) Urine pH (5.0-7.0) Ur Specific [place] (1.003-1.030) Urine Protein (Negative) mg/dL Urine Glucose (UA) (Negative) mg/dL Urine Ketones (Negative) mg/dL Urine Blood (Negative) Urine Nitrite (Negative) Urine Bilirubin (Negative) Urine Urobilinogen (<2.0) mg/dL Ur Leukocyte Esterase (Negative) Urine WBC (Auto) (0.0-6.0) /HPF Urine RBC (Auto) (0.0-6.0) /HPF U Epithel Cells (Auto) (0-13.0) /HPF Urine Mucus /HPF 12/13/19 12/13/19 Range/Units 05:28 Unknown WBC (4.5-11.0) K/mm3 RBC (3.65-5.03) M/mm3 Hgb (10.1-14.3) gm/dl Hct (30.3-42.9) % MCV (79-97) fl MCH (28-32) pg MCHC (30-34) % RDW (13.2-15.2) % Plt Count (140-440) K/mm3 Add Manual Diff Total Counted Seg Neutrophils % Seg Neuts % (Manual) (40.0-70.0) % Band Neutrophils % % Lymphocytes % (Manual) (13.4-35.0) % Reactive Lymphs % (Man) % Monocytes % (Manual) (0.0-7.3) % Eosinophils % (Manual) (0.0-4.3) % Basophils % (Manual) (0.0-1.8) % Metamyelocytes % % Myelocytes % % Promyelocytes % % Blast Cells % % Nucleated RBC % Seg Neutrophils # Man (1.8-7.7) K/mm3 Band Neutrophils # K/mm3 Lymphocytes # (Manual) (1.2-5.4) K/mm3 Abs React Lymphs (Man) K/mm3 Monocytes # (Manual) (0.0-0.8) K/mm3 Eosinophils # (Manual) (0.0-0.4) K/mm3 Basophils # (Manual) (0.0-0.1) K/mm3 Metamyelocytes # K/mm3 Myelocytes # K/mm3 Promyelocytes # K/mm3 Blast Cells # K/mm3 WBC Morphology Hypersegmented Neuts Hyposegmented Neuts Hypogranular Neuts Smudge Cells Toxic Granulation Toxic Vacuolation Dohle Bodies Pelger-Huet Anomaly Bhavana Rods Platelet Estimate Clumped Platelets Plt Clumps, EDTA Large Platelets Giant Platelets Platelet Satelliting Plt Morphology Comment RBC Morphology Dimorphic RBCs Polychromasia Hypochromasia Poikilocytosis Anisocytosis Microcytosis Macrocytosis Spherocytes Pappenheimer Bodies Sickle Cells Target Cells Tear Drop Cells Ovalocytes Helmet Cells Paula-Peculiar Bodies [place] Rings Angelica Cells Bite Cells Crenated Cell Elliptocytes Acanthocytes (Spur) Rouleaux Hemoglobin C Crystals Schistocytes Malaria parasites Srinivas Bodies Hem Pathologist Commnt Sodium (137-145) mmol/L Potassium (3.6-5.0) mmol/L Chloride (98-107) mmol/L Carbon Dioxide (22-30) mmol/L Anion Gap mmol/L BUN (7-17) mg/dL Creatinine (0.6-1.2) mg/dL Estimated GFR ml/min BUN/Creatinine Ratio % Glucose (65-100) mg/dL Calcium (8.4-10.2) mg/dL Total Bilirubin (0.1-1.2) mg/dL AST (5-40) units/L ALT (7-56) units/L Alkaline Phosphatase (35-129) units/L Total Creatine Kinase 134 (30-135) units/L Total Protein (6.3-8.2) g/dL Albumin (3.9-5) g/dL Albumin/Globulin Ratio % HCG, Qual (Negative) Urine Color Red (Yellow) Urine Turbidity Cloudy (Clear) Urine pH 6.0 (5.0-7.0) Ur Specific [place] 1.031 H (1.003-1.030) Urine Protein >500 (Negative) mg/dL Urine Glucose (UA) 50 (Negative) mg/dL Urine Ketones 20 (Negative) mg/dL Urine Blood Lg (Negative) Urine Nitrite Neg (Negative) Urine Bilirubin Neg (Negative) Urine Urobilinogen < 2.0 (<2.0) mg/dL Ur Leukocyte Esterase Tr (Negative) Urine WBC (Auto) 169.0 H (0.0-6.0) /HPF Urine RBC (Auto) > 182.0 (0.0-6.0) /HPF U Epithel Cells (Auto) 15.0 H (0-13.0) /HPF Urine Mucus 3+ /HPF - Medical Decision Making It is a 29-year-old female presents emergency room with complaints of nausea, vomiting, diarrhea that began yesterday. She has associated generalized abdominal cramping. States that the last thing she had to eat was a sub- sandwich. He denies anyone else getting sick or any known sick contacts. She denies any recent travel. She denies any urinary symptoms, fever, hematochezia, melena, hematemesis, blood in the stool. She states that her menstrual cycle began 3 days ago. She states that 2 weeks ago she had a EGD and colonoscopy which were both within normal limits per patient. She does endorse marijuana use. She states that she last smoked marijuana couple of days ago. She states that she recurrently has episodes of these symptoms. Initial vitals with mildly elevated blood pressure, otherwise stable. On exam mild generalized tenderness palpation, no guarding, no rebound, no rigidity, no peritoneal signs, normal bowel sounds. Labs are stable. UA shows many red blood cells secondary to patient's menstrual cycle, there is also white blood cells and leukocyte esterase, could be contamination due to menstrual cycle, urine culture sent, will cover patient for UTI with Macrobid. Patient given 1 L IV fluid, Zofran, Toradol, Bentyl and symptoms improved and patient was feeling much better and ready to go home. Patient had no further episodes of vomiting while in the emergency department. She was able to tolerate p.o. intake without difficulty. Discussed all results with patient and answered questions. Patient will be referred to PCP and GI. Patient will be given prescription for Zofran, Bentyl, Macrobid. Advised patient Please take medication as prescribed. Increase your water intake. Eat a bland liquid diet and slowly advance your diet as tolerated. Avoid anything sugary or greasy. Follow-up with your primary care doctor. Follow-up with your GI doctor. Return to emergency room for any new or worsening symptoms. - Differential Diagnosis Gastroenteritis, UTI, menstrual syndrome, food poisoning, colitis, dehydrat Critical care attestation.: If time is entered above; I have spent that time in minutes in the direct care of this critically ill patient, excluding procedure time. ED Disposition Clinical Impression: Nausea vomiting and diarrhea, Abdominal cramping UTI (urinary tract infection) Qualifiers: Urinary tract infection type: acute cystitis Hematuria presence: with hematuria Qualified Code(s): N30.01 - Acute cystitis with hematuria Disposition: TO HOME OR SELFCARE Is pt being admited?: No Does the pt Need Aspirin: No Condition: Stable Instructions: Urinary Tract Infection in Women (ED), Gastroenteritis (ED) Additional Instructions: Please take medication as prescribed. Increase your water intake. Eat a bland liquid diet and slowly advance your diet as tolerated. Avoid anything sugary or greasy. Follow-up with your primary care doctor. Follow-up with your GI doctor. Return to emergency room for any new or worsening symptoms. Prescriptions: Dicyclomine [Bentyl] 20 mg PO Q8HR PRN #7 tablet PRN Reason: abdominal pain Nitrofurantoin Hawkins/M-Cryst [Macrobid CAP] 100 mg PO BID 5 Days #10 capsule Ondansetron [Zofran Odt] 4 mg PO Q8HR PRN #10 tab.rapdis PRN Reason: Nausea And Vomiting Referrals: PRIMARY CARE,MD [Primary Care Provider] - 2-3 Days your, GI doctor [Other] - 2-3 Days Time of Disposition: 09:58 Print Language: PORTUGUESE
== END 2019-12-13 10:35 | disposition home or self-care (01) ==
LOC: ED 04:52
DX: N39.0 Urinary tract infection, site not specified (principal); R11.2 Nausea with vomiting, unspecified; R19.7 Diarrhea, unspecified; R10.84 Generalized abdominal pain; I10 Essential (primary) hypertension; F12.10 Cannabis abuse, uncomplicated; Z98.890 Other specified postprocedural states; Z79.1 Long term (current) use of non-steroidal anti-inflammatories (NSAID); Z79.2 Long term (current) use of antibiotics; Z79.899 Other long term (current) drug therapy; Z88.0 Allergy status to penicillin
CPT/HCPCS: 36415; 80053; 81001; 82550; 84703; 85007; 85025; 96361; 96372; 96374; 96375; 99283; J0500; J1885; J2405; J7030